=== PATIENT | female | born 2000 | race Caucasian/White ===

== ENCOUNTER 2021-09-26 19:05 | Emergency (ER) | payer BC, OTHER ==
--- OUTSIDE RECORDS SUMMARY | 2021-09-26 19:08 | XMS REPORT | Continuity of Care Document ---
:[address] [facility] t Address [address] [place] [address] Care Team Providers Name Role Phone Pcp, Patient Does Not Have A Primary Care Physician [id number] Roxi Bhatt Attending Clinician Unavailable Jody Caro Attending Clinician Unavailable JENNIFER BAIRD Attending Clinician Unavailable Nurse, [place] Albarran Attending Clinician Unavailable Michael CAAL, Nelsy Fonseca Attending Clinician Abigail Singh RN Attending Clinician Unavailable Only, Ang Db Test Attending Clinician Unavailable Cira Mayer MD Attending Clinician CIRA MAYER Attending Clinician Unavailable Lab, Adc Fam Pob I Attending Clinician Unavailable Shantelle Avendaño Attending Clinician 2, Adc Lab Attending Clinician Unavailable Jennifer Baird MD Attending Clinician Doctor Unassigned, [place] Attending Clinician Unavailable Physician, No Primary Care Admitting Clinician Unavailable Payers Payer Name Policy Type Policy Number Effective Date Expiration Date S [facility] [id number] 2020 PPO 00:00:00 Problems This patient has no known problems. Allergies, Adverse Reactions, Alerts Allergy Allergy Status Severity Reaction(s) Onset Inactive Treating Comm ents Source Name Type Date Date Clinician PENICILL DRUG Active Hives Univers IN INGREDI 1-25 ity of 00:00: [place] 00 Medical Branch Penicill Propensi Active Hives Univer s in ty to -25 ity of adverse 00:00: [place] reaction 00 Medical s Branch NO KNOWN Drug Active Univers ALLERGIE Class ity of S [facility] Social History Social Habit Start Date Stop Date Quantity Comments Source Exposure to Yes [facility] SARS-CoV-2 [facility] [place] [facility] (event) Branch Alcohol intake 2020-09-07 2020-09-07 Ex-drinker University of 00:00:00 00:00:00 (finding) [facility] Tobacco use and 2020-03-20 2020-03-20 Never used Universit y of exposure 00:00:00 00:00:00 [facility] Sex Assigned At [birth year] Universit y of 00:00:00 00:00:00 [facility] Smoking Status Start Date Stop Date Source Unknown if ever smoked [facility]it y [facility] Smoker, current status 2020-03-20 00:00:00 Unive rsity of [facility] [place] [facility] unknown Branch Medications Ordered Filled Start Stop Current Ordering Indication Dosage Frequency Signature Comments Components Source Medication Medication Date Date Medication? Clinician (SIG) Name Name medroxyPROG Yes [id number] 150mg Univers ESTERone 6-07 ity of (DEPO-PROVE 15:15: [place] RA) 00 Medical injection Branch 150 mg medroxyPROG 2020-0 Yes [id number] 150mg Univers ESTERone 6-07 ity of (DEPO-PROVE 15:15: [place] RA) 00 Medical injection Branch 150 mg medroxyPROG 2020-0 Yes [id number] 150mg Univers ESTERone 6-07 ity of (DEPO-PROVE 15:15: [place] RA) 00 Medical injection Branch 150 mg medroxyPROG 2020-0 Yes [id number] 150mg Univers ESTERone 6-07 ity of (DEPO-PROVE 15:15: [place] RA) 00 Medical injection Branch 150 mg medroxyPROG 2020-0 Yes [id number] 150mg Univers ESTERone 6-07 ity of (DEPO-PROVE 15:15: [place] RA) 00 Medical injection Branch 150 mg medroxyPROG 0 2020- No 150mg Univ ers ESTERone 1-29 12-31 ity of (DEPO-PROVE 19:45: 19:44 [place] RA) 00 :00 Medical injection Branch 150 mg medroxyPROG 2020- No 150mg Univ ers ESTERone 03-24 ity of (DEPO-PROVE 19:45: 19:44 [place] RA) 00 :00 Medical injection Branch 150 mg medroxyPROG 2020- No 150mg Univ ers ESTERone 03-24 ity of (DEPO-PROVE 19:45: 19:44 [place] RA) 00 :00 Medical injection Branch 150 mg medroxyPROG 2020- No 150mg Univ ers ESTERone 03-24 ity of (DEPO-PROVE 19:45: 19:44 [place] RA) 00 :00 Medical injection Branch 150 mg medroxyPROG 2020- No 150mg Univ ers ESTERone 03-24 ity of (DEPO-PROVE 19:45: 19:44 [place] RA) 00 :00 Medical injection Branch 150 mg medroxyPROG 2020- No 150mg 150 mg, U nivers ESTERone 03-24 Intramuscu ity of (DEPO-PROVE 19:45: 19:44 lar, [place] RA) 00 :00 [id number], Medical injection 4 doses, Branch 150 mg First dose on Fri03/24/20 at 1345, Last dose on Fri12/01/20 at 1345, Routine mv,Ca,min/i 0 Yes Take by Uni vers dinora/FA/guar 1-25 mouth. ity of rosalva/caff 21:18: (ONE-A-DAY 11 Medical WOMEN'S Branch ACTIVE ORAL) mv,Ca,min/i 2020-0 Yes Take by Uni vers dinora/FA/guar 1-25 mouth. ity of rosalva/caff 21:18: (ONE-A-DAY 11 Medical WOMEN'S Branch ACTIVE ORAL) mv,Ca,min/i 2020-0 Yes Take by Uni vers dinora/FA/guar 1-25 mouth. ity of rosalva/caff 15:18: (ONE-A-DAY 11 Medical WOMEN'S Branch ACTIVE ORAL) mv,Ca,min/i 2021-0 Yes Take by Uni vers dinora/FA/guar 1-25 mouth. ity of rosalva/caff 15:18: [place] (ONE-A-DAY 11 Medical WOMEN'S Branch ACTIVE ORAL) mv,Ca,min/i Yes Take by Uni vers dinora/FA/guar 1-25 mouth. ity of rosalva/caff 15:18: [place] (ONE-A-DAY 11 Medical WOMEN'S Branch ACTIVE ORAL) mv,Ca,min/i Yes Take by Uni vers dinora/FA/guar 1-25 mouth. ity of rosalva/caff 15:18: [place] (ONE-A-DAY 11 Medical WOMEN'S Branch ACTIVE ORAL) Procedures Procedure Date / Time Performing Clinician Source Performed PROLACTIN 2020-03-21 19:25:00 [facility] THYROID STIMULATING 2020-03-21 19:25:[address] [facility] HORMONE [facility] BASIC METABOLIC PANEL 2020-03-21 19:25:00 [facility] (NA, K, CL, CO2, Medical Branch GLUCOSE, BUN, CREATININE, CA) LIPID PANEL 2020-03-21 19:25:00 [facility] ([id number])(TOTAL Medical Branch CHOLESTEROL, TRIGLYCERIDES, HDL) ADC OR FLORES ONLY - 2020-03-21 19:25:00 [facility] RPR Medical Branch HIV 1/2 AG-AB WITH 2020-03-21 19:25:00 [facility] REFLEX [facility] ASSIGNMENT OF BENEFITS 2020-03-20 20:55:16 Doctor Unassigned, No [facility] Name Medical Branch Encounters Start End Encounter Admission Attending Care Care Encounter Source Date/Time Date/Time Type Type Clinicians Facility Department ID 2021-07[facility] [id number] Common 08:07:02 Roxi [facility] 2021-05-25 Outpatient Miller [facility] [id number] Common 09:09:04 Roxi [facility] 2019-04-25 [id number] [facility] 00:02:00 [facility] 2019-03-27 Inpatient [facility] [id number] [facility] 00:06:00 [facility] 2021-07-18 2021-07-18 ambulatory STLMLC STLMLC [id number] Common 00:00:00 00:00:00 [facility] 2021-06-19 2021-06-19 ambulatory STLMLC STLMLC [id number] Common 00:00:00 00:00:00 [facility] 2021-06-18 2021-06-18 ambulatory STLMLC STLMLC [id number] Common 00:00:00 00:00:00 [facility] 2021-05-25 2021-05-25 ambulatory STLMLC STLMLC [id number] Common 00:00:00 00:00:00 [facility] 2021-03-20 2021-03-20 Outpatient JUSTIN BOLDENN [facility] [id number] Univers 14:00:00 14:00:00 [id number] [facility] 2021-03-20 2021-03-20 Outpatient JUSTIN BOLDENN [facility] [id number] Univers 14:00:00 14:00:00 [facility] 2021-02-28 2021-02-28 Outpatient [facility] [id number] Univers 13:00:00 13:00:00 [id number] [facility] 2020-12-06 2020-12-06 Nurse Nurse, Carlosj Avis [facility] [id number] Univers 10:00:39 10:24:33 Visit Nelsy Rodriguez [id number] ity of Pediatric [id number] [facility] [phone] [address] 2020-12-06 2020-12-06 Outpatient R [facility] [id number] Univers 10:20:00 10:20:[facility]-12[facility] 2020-12-06 Outpatient R [facility] [id number] Univers 10:00:00 10:00:00 [id number] ity [facility] 2020-12-06 2020-12-06 Outpatient R [facility] [id number] Univers 10:00:00 10:00:00 ity [facility] 2020-11-12 2020-11-12 Telephone CHANCE Singh [id number] Univers 00:00:00 00:00:00 Abigail [place] [id number] it y of [facility] [id number] Parmjit as [phone] [address] 2020-11-11 2020-11-11 Laboratory Only, Ang Db Test [facility] [id number] Univers 09:03:10 09:18:10 Only [facility] [id number] ity of [place] [id number] Parmjit as Timur?Blea [phone] [address] Medical Office Building 2020-11-11 2020-11-11 Outpatient [facility] [id number] Univers 09:15:00 09:15:00 [id number] ity [facility] 2020-11-11 2020-11-11 Outpatient R MORENO [facility] [id number] Univers 09:15:00 09:15:00 CIRA ity [facility] 2020-09-07 2020-09-07 Outpatient R [facility] [id number] Univers 10:00:00 10:00:00 [id number] ity [facility] 2020-09-07 2020-09-07 Outpatient R [facility] [id number] Univers 10:00:00 10:00:00 ity of [facility] 2020-09-06 2020-09-06 Outpatient R [facility] [id number] Univers 10:00:00 10:00:00 [id number] ity [facility] 2020-09-06 2020-09-06 Outpatient R JENNIFER BAIRD [facility] [id number] Univers 10:00:00 10:00:00 ity [facility] 2020-08-04 2020-08-04 Laboratory Lab, Adc Fam Pob I [facility] [id number] Univers 14:55:01 15:00:42 Only Shantelle Ram [facility] [id number] ity [facility] [id number] Parmjit as Professio [phone] Ma dical nal 0[address] Branch Office [address] One 2020-08-04 2020-08-04 Outpatient R [facility] [id number] Univers 15:00:00 15:00:00 [id number] ity of [facility] 2020-08-04 2020-08-04 Outpatient R [facility] [id number] Univers 15:00:00 15:00:00 ity of [facility] 2020-06-14 2020-06-14 Outpatient R [facility] [id number] Univers 10:00:00 10:00:00 [id number] ity of [facility] 2020-06-14 2020-06-14 Outpatient R [facility] [id number] Univers 10:00:00 10:00:00 ity of [facility] 2020-03-24 2020-03-24 Outpatient [facility] [id number] Univers 11:15:00 11:15:00 [id number] ity of [facility] 2020-03-24 2020-03-24 Outpatient R [facility] [id number] Univers 11:15:00 11:15:00 ity [facility] 2020-03-21 2020-03-21 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 [id number] [place] [phone] Ma dical nal 353 [facility] 2020-03-21 2020-03-21 Outpatient R [facility] [id number] Univers 13:15:00 13:15:00 [id number] ity [facility] 2020-03-21 2020-03-21 Outpatient R [facility] [id number] Univers 13:15:00 13:15:00 ity of [facility] 2020-03-20 2020-03-20 Outpatient JENNIFER BOLDEN [facility] [id number] Univers 15:00:00 15:00:00 ity of [facility] 2020-03-20 2020-03-20 Orders Doctor CHANCE [id number] Univers 00:00:00 00:00:00 Only Unassigned, DELVIN [id number] ity of [place] [facility] [id number] Parmjit as [phone] [address] 2019-03-30 2019-03-30 [facility] [id number] [facility] 14:04:00 14:04:00 [facility] 2019-03-02 2019-03-02 [facility] [id number] [facility] 14:37:00 14:37:00 Jody [facility] Results Test Description Test Time Test Comments Results Result Comments Source ADC OR FLORES ONLY - RPR 2020-03-23 07:59:00 Test Item Value Reference Range Interpretation Comme nts RPR (Qualitative) (test code = 13089-4) Nonreactive Nonreactive Lab Interpretation (test code = 21124-9) [facility] 01:59:00 Test Item Value Reference Range Interpretation Comments PROLACTIN (test code = 7355413502) 8.8 ng/mL 3.3-26.7 Lab Interpretation (test code = Normal 26776-1) [facility] AG-AB WITH [id number] 22:10:00 Test Item Value Reference Range Interpretation Comments HIV Negative Negative Semi-quantitative (test code = 33148-0) TREE (test code = Non-reactive for HIV-1 TREE) antigen and HIV-1/HIV-2 antibodies. ?No laboratory evidence of HIV infection. ?Repeat in 2-4 weeks if acute HIV infection is suspected. [facility] STIMUL[facility] [id number] 22:01:00 Test Item Value Reference Range Interpretation Comments TSH (test code = See_Comment [Automated message] [id number]) The system [employer] generated this result transmitted ref erence range: 0.45 - 4 .70 mIU/L. The refe rence range was not u sed to interpret this result as normal/abnor mal. Lab Interpretation (test Normal code = 26287-4) [facility]IP[facility] PAN[facility] (72180)(TOTAL CHOLESTEROL, TRIGLYCERIDES, HDL)2020-03-21 21:32:00 Test Item Value Reference Range Interpretation Comments CHOL (test code = 180 mg/dL 120-200 [id number]) HDL (test code = 64 mg/dL >50 7043108005) HDLC RATIO (test code = See_Comment [Au tomated message] [id number]) The system [employer] generated this result transmit reyes reference range : <=4.5. The refe rence range was not u sed to interpret th is result as normal/abnormal . TRIG (test code = 50 mg/dL 30-170 8390516116) LDL CHOL (test code = 106 mg/dL See_Comment [Auto mated message] 20325-5) The system [employer] generated this result transmit reyes reference range : <=160. The refe rence range was not u sed to interpret th is result as normal/abnormal . VLDL (test code = 10 mg/dL 5-60 5130930665) Lab Interpretation (test Normal code = 41705-0) [facility] MET[facility]OLIC PANEL (NA, K, CL, CO2, GLUCOSE, BUN, CREATININE, CA)2020-03-21 21:31:00 Test Item Value Reference Range Interpretation Comments NA (test code = 139 mmol/L 135-145 8624926905) K (test code = 4.3 mmol/L 3.5-5 8001531378) CL (test code = 101 mmol/L 98-108 9423971661) CO2 TOTAL (test code = 29 mmol/L 23-31 4219202979) AGAP (test code = 2-16 0163552743) BUN (test code = 9 mg/dL 7-23 1065956206) GLUCOSE (test code = 90 mg/dL 70-110 2291187232) CREATININE (test code 0.68 mg/dL 0.5-1.04 = 4637905778) CALCIUM (test code = 9.7 mg/dL 8.6-10.6 3583419820) eGFR Calculation mL/min/1.73m2 (Non-) (test code = 7034152328) eGFR Calculation mL/min/1.73m2 () (test code = 5513749215) TREE (test code = TREE) Association of Glomerular Filtration Rate (GFR) and Staging of Kidney Disease* + -+ + ---+| GFR (mL/min/1.73 m2) ?| With Kidney Damage ?| ?Without Kidney Damage+ -------+ ------+ ---------+| ?>90 ?| ?Stage one ?| ? Normal ?+ --+ -+ ----+| ?60-89 ?| ?Stage two ?| ? Decreased GFR ? + -+ + ---+| ?30-59 ?| ?Stage three ?| ? Stage three ? + -+ + ---+| ?15-29 ?| ?Stage four ? | ? Stage four ?+ --+ -+ ----+| ?<15 (or dialysis) ? ?| ?Stage five ? | ? Stage five ?+ --+ -+ ----+ *Each stage assumes the associated GFR level has been in effect for at least three months. ?Stages 1 to 5, with or without kidney disease, indicate chronic kidney disease. Notes: Determination of stages one and two (with eGFR >59mL/min/1.73 m2) requires estimation of kidney damage for at least three months as defined by structural or functional abnormalities of the kidney, manifested by either:Pathological abnormalities or Markers of kidney damage (including abnormalities in the composition of the blood or urine or abnormalities in imaging tests). [facility]"
[2021-09-26 19:51] LABS: Absolute Lymphocytes (CBC) 1.9 K/uL (0.7-4.9); Hematocrit 38.9 % (36.0-45.0); Lymphocytes % 13.7 % (15.3-44.8); MCV 90.5 fL (80-100); MPV 7.4 fL (7.6-11.3)
[2021-09-26] MEDS ORDERED: NA CHLORIDE 0.9% 1,000 ML ONE (19:57)
[2021-09-26 20:01] LABS: Protime INR 1.12
[2021-09-26 20:12] LABS: ALT/SGPT 27 U/L (12-78); AST/SGOT 19 U/L (15-37); Albumin 4.6 g/dL (3.4-5.0); Alkaline Phosphatase 79 U/L (45-117); BUN Blood Urea Nitrogen 11 mg/dL (7-18); Bicarbonate 21 mmol/L (21-32); Bilirubin Total 0.3 mg/dL (0.2-1.0); Glomerular Filtration Rate 81 ml/min (=/>90); Glucose Level 303 mg/dL (74-106); Potassium 3.5 mmol/L (3.5-5.1); Sodium Level 137 mmol/L (136-145)
[2021-09-26 20:15] LABS: Bilirubin Direct < 0.1 mg/dL (0-0.2)
--- NOTE | 2021-09-26 20:54 | RAD REPORT ---
EXAM DESCRIPTION: CT - Head Brain Wo Cont - 09/26/2021 7:58 pm CLINICAL HISTORY: possible seizure, first one COMPARISON: No comparisons TECHNIQUE: Axial 5 mm thick images of the head were obtained without IV contrast. All CT scans are performed using dose optimization technique as appropriate and may include automated exposure control or mA/KV adjustment according to patient size. FINDINGS: No intracranial hemorrhage, mass, edema or shift of mid-line structures. No acute infarcti on changes seen. No abnormal extra-axial fluid collections. Ventricles are normal. Mastoid air cells and visualized portions of the paranasal sinuses are clear. No acute bony findings. IMPRESSION: Negative non-contrast CT head examination.
[2021-09-26 21:03] LABS: Barbiturates NEGATIVE (NEGATIVE); Benzodiazepines NEGATIVE (NEGATIVE); Cocaine NEGATIVE (NEGATIVE); METHAMPHETAM NEGATIVE (NEGATIVE); Methadone NEGATIVE (NEGATIVE); Opiates NEGATIVE (NEGATIVE); Phencyclidine NEGATIVE (NEGATIVE); THC Cannibis POSITIVE (NEGATIVE)
--- NOTE | 2021-09-26 21:34 | RAD REPORT ---
EXAM DESCRIPTION: CT - Abdomen Pelvis W Contrast - 09/26/2021 9:07 pm CLINICAL HISTORY: vomiting, elevated WBC COMPARISON: No comparisons TECHNIQUE: Biphasic, helical CT imaging of the abdomen and pelvis was performed following 100 ml non -ionic IV contrast. No oral contrast was given. All CT scans are performed using dose optimization technique as appropriate and may include automated exposure control or mA/KV adjustment according to patient size. FINDINGS: No suspicious findings in the lung bases. The liver, spleen, and pancreas show no suspicious findings. Gallbladder and biliary tree are also wi thout suspicious finding. Symmetric renal function is seen with no hydronephrosis or suspicious renal mass. No pyelonephritis o r acute parenchymal process. No bladder abnormalities. No adrenal abnormalities. Uterus and ovaries s how no suspicious findings. No dilated bowel loops or bowel wall thickening. No appendicitis findings. No free air, free fluid or inflammatory stranding. No hernia, mass or bulky lymphadenopathy. No suspicious bony findings. IMPRESSION: Contrast enhanced CT abdomen and pelvis showing no significant or suspicious finding.
[2021-09-26 21:56] LABS: CSF Glucose 118 mg/dL (40-70)
[2021-09-26 21:59] LABS: Urine Blood Negative (Negative); Urine Glucose 2+ (Negative); Urine Protein 2+ (Negative); Urine Specific Gravity >=1.030 (1.005-1.030); Urine pH 5.5 (5.0-7.0)
[2021-09-26 22:03] LABS: Appearance CLEAR (CLEAR); Body Fluid Source CSF; Body Fluid WBC 2 /mm^3; Color of fluid Colorless (COLORLESS); Fluid Total Volume 5.5 ml
[2021-09-26 22:06] LABS: Appearance CLEAR (CLEAR); Body Fluid Source CSF; Color of fluid Colorless (COLORLESS)
[2021-09-26 22:14] LABS: Body Fluid WBC 3 /mm^3
[2021-09-26 23:01] LABS: Potassium 3.8 mmol/L (3.5-5.1)
--- NOTE | 2021-09-26 23:51 | EDPHYS ---
Physician Documentation [facility] Name: Colleen Fong Age: 20 yrs Sex: Female : 2000 Arrival Date: 09/26/2021 Time: 19:10 Bed 5 Private MD: ED Physician Zenon Santamaria HPI: 09/26 20:01 This 20 yrs old Female presents to ER via EMS with complaints of possible seizure. rn 20:01 The patient presents after having a possible seizure episode. Character of seizure(s): rn Motor activity: generalized, Circulation: the patient did not experience evidence of pulse disturbance. Seizure onset: just prior to arrival. Associated injury: The patient did not suffer any apparent associated injury. Current symptoms: confusion. It is unknown whether or not the patient has had similar symptoms in the past. The patient has not recently seen a physician. EMS reports patient with possible seizure today, had been throwing up and boyfriend gave her either a phenergan or zofran, family reported seizure like activity, no hx of seizures. No trauma. NO fever. EMS did not witness seizure. Pt with decreased responsiveness upon EMS arrival but becoming more alert with time. . Historical: - Allergies: 19:30 No Known Allergies; vc1 - Home Meds: 19:30 None [Active]; vc1 - PSHx: 19:30 None; vc1 - Immunization history:: Adult Immunizations up to date, Unknown. - Social history:: Smoking status: unknown. - Family history:: not pertinent. - Hospitalizations: : No recent hospitalization is reported. ROS: 20:01 Unable to obtain ROS due to patient being uncooperative. rn Exam: 20:01 Constitutional: This is a well developed, well nourished patient who is awake, alert, rn and in no acute distress. Not cooperating, not answering questions. Covers head with blanket. Head/Face: Normocephalic, atraumatic. Eyes: Pupils equal round and reactive to light, extra-ocular motions intact. Lids and lashes normal. Conjunctiva and sclera are non-icteric and not injected. Cornea within normal limits. Periorbital areas with no swelling, redness, or edema. Cardiovascular: Regular rate and rhythm. No pulse deficits. Respiratory: No increased work of breathing, no retractions or nasal flaring. Abdomen/GI: Soft, non-tender Skin: Warm, dry MS/ Extremity: Pulses equal, no cyanosis. Neuro: Awake and alert, GCS 15, moves all 4 extremities, withdraws and localizes pain, does not cooperate with most of exam. 21:10 ECG was reviewed by the Attending Physician. rn Vital Signs: 19:19 BP 135 / 57; Pulse 60; Resp 18; Temp 98.1(A); Pulse Ox 99% on R/A; oe 22:22 BP 124 / 68; Pulse 63; Resp 18; Pulse Ox 100% ; vc1 23:30 BP 122 / 65; Pulse 64; Resp 17; Pulse Ox 100% ; vc1 Procedures: 21:28 Lumbar Puncture: Patient placed in left lateral decubitus position. Prepped with rn Betadine. Draped using sterile technique. used lidocaine, 2 cc. Collected 5 ml's of clear fluid. Sample sent to lab. Puncture site dressed with band aid, Patient tolerated well. Single stick, opening pressure only 11. MDM: 19:11 Patient medically screened. rn 23:04 ED course: Pt feeling much better, no acute findings to explain seizure, CSF studies rn and imaging of brain and abdomen negative. . 23:49 Differential diagnosis: seizure, adverse drug reaction, meningitis, new onset seizure, rn electrolyte disorder. Data reviewed: vital signs, nurses notes, lab test result(s), EKG, radiologic studies, CT scan, and as a result, I will discharge patient. Counseling: I had a detailed discussion with the patient and/or guardian regarding: the historical points, exam findings, and any diagnostic results supporting the discharge/admit diagnosis, lab results, radiology results, the need for outpatient follow up, to return to the emergency department if symptoms worsen or persist or if there are any questions or concerns that arise at home. Response to treatment: the patient's symptoms have resolved after treatment, the patient's condition has returned to base line, the patient is now symptom free, and as a result, I will discharge patient. Special discussion: I discussed with the patient/guardian in detail that at this point there is no indication for admission to the hospital. It is understood, however, that if the symptoms persist or worsen the patient needs to return immediately for re-evaluation. Based on the history and exam findings, there is no indication for further emergent testing or inpatient evaluation. I discussed with the patient/guardian the need to see the primary care provider for further evaluation of the symptoms. 09/26 19:11 Order name: Acetaminophen; Complete Time: 21:07 rn 09/26 19:11 Order name: Basic Metabolic Panel; Complete Time: 21:07 rn 09/26 19:11 Order name: CBC with Diff; Complete Time: 20:06 rn 09/26 19:11 Order name: ETOH Level; Complete Time: 21: rn 09/26 19:11 Order name: Hepatic Function; Complete Time: 21: rn 09/26 19:11 Order name: PT-INR; Complete Time: 20: rn 09/26 19:11 Order name: Ptt, Activated; Complete Time: 20: rn 09/26 19:11 Order name: Salicylate; Complete Time: 21: rn 09/26 19:11 Order name: Urine Drug Screen; Complete Time: 21: rn 09/26 20:01 Order name: SARS-COV-2 RT PCR (Document "Date of Onset" if Symptomatic); Complete Time: rn 23:48 09/26 21:28 Order name: Csf Culture rn 09/26 21:28 Order name: Fluid Cell Count,Body; Complete Time: 22:17 rn 09/26 19:11 Order name: EKG; Complete Time: 19:12 rn 09/26 19:11 Order name: EKG - Nurse/Tech; Complete Time: 20:53 rn 09/26 19:11 Order name: IV Saline Lock; Complete Time: 20:53 rn 09/26 19:11 Order name: Labs collected and sent; Complete Time: 20:53 rn 09/26 19:11 Order name: Urine Dipstick-Ancillary (obtain specimen); Complete Time: 20:53 rn 09/26 19:11 Order name: Urine Test (obtain specimen); Complete Time: 20:53 rn 09/26 19:11 Order name: CT Head Brain wo Cont; Complete Time: 21:07 rn 09/26 19:11 Order name: Glucose Level; Complete Time: 22:39 rn 09/26 20:06 Order name: CT Abd/Pelvis - IV Contrast Only; Complete Time: 21:36 rn 09/26 20:17 Order name: Lumbar Puncture Consent; Complete Time: 22:08 rn 09/26 20:17 Order name: Lumbar Puncture Setup; Complete Time: 22:08 rn 09/26 21:28 Order name: Spinal Fluid Profile; Complete Time: 22:17 rn 09/26 22:00 Order name: Urine Dipstick-Ancillary; Complete Time: 22:17 [facility] 09/26 22:18 Order name: BMP: once bolus complete; Complete Time: 23:13 rn EC:10 Rate is 62 beats/min. Rhythm is regular. QRS [place] is Normal. [place] interval is normal. QRS rn interval is normal. QT interval is normal. No Q waves. T waves are Normal. No ST changes noted. Clinical impression: Normal ECG. Interpreted by me. Reviewed by me. Administered Medications: 19:52 Drug: NS 0.9% 1000 ml Route: IV; Rate: 1000 ml; Site: left antecubital; 22:07 Follow up: Response: No adverse reaction; IV Status: Completed infusion; IV Intake: aa9 1000ml Disposition Summary: 09/26/21 23:50 Discharge Ordered Location: Home rn Problem: new rn Symptoms: are resolved rn Condition: Stable rn Diagnosis - Nausea with vomiting, unspecified rn - Dehydration rn - Other seizures rn Followup: rn - With: Private Physician - When: As needed - Reason: Recheck today's complaints, Re-evaluation by your physician Discharge Instructions: - Discharge Summary Sheet rn - Dehydration, Adult rn - Nausea and Vomiting, Adult rn - Seizure, Adult rn Forms: - Medication Reconciliation Form rn - Thank You Letter rn - Antibiotic dietary internship - Prescription Opioid Use rn Signatures: Dispatcher [employer] EDMariely Vogel RN RN Zenon Mccallum MD MD rn Calcote, Vanessa, RN RN 1 Torie Boggs RN aa9 Corrections: (The following items were deleted from the chart) 21:29 21:28 Lumbar Puncture: Patient placed in left lateral decubitus position. Prepped with rn Betadine. Draped using sterile technique. Collected 5 ml's of clear fluid. Sample sent to lab. Puncture site dressed with band aid, Patient tolerated well. Single stick, opening pressure only 11. rn
--- NOTE | 2021-09-26 23:51 | ER ---
Nurse's Notes [facility] Name: Colleen Fong Age: 20 yrs Sex: Female : 2000 Arrival Date: 09/26/2021 Time: 19:10 Bed 5 Private MD: Diagnosis: Nausea with vomiting, unspecified;Dehydration;Other seizures Presentation: 09/26 19:22 Chief complaint: EMS states: "She was feeling nauseous so her boyfriend gave her a few vc1 of his phenergan. He wasn't able to say how many or the dose. A little while later she had a seizure and it looks like she bit her lip. No seizure observed in route and she hasn't said anything. She has started becoming very restless.". Coronavirus screen: At this time, the client does not indicate any symptoms associated with coronavirus-19. Ebola Screen: No symptoms or risks identified at this time. Initial Sepsis Screen: Does the patient meet any 2 criteria? No. Patient's initial sepsis screen is negative. Does the patient have a suspected source of infection? No. Patient's initial sepsis screen is negative. Risk Assessment: Do you want to hurt yourself or someone else? Patient reports no desire to harm self or others. Onset of symptoms was September 26, 2021. 19:22 Method Of Arrival: EMS: [facility] 1 19:22 Acuity: KYLE 2 vc1 Triage Assessment: 19:47 General: Appears distressed, uncomfortable, Behavior is agitated, anxious, listless, aa9 uncooperative. Historical: - Allergies: 19:30 No Known Allergies; vc1 - Home Meds: 19:30 None [Active]; vc1 - PSHx: 19:30 None; vc1 - Immunization history:: Adult Immunizations up to date, Unknown. - Social history:: Smoking status: unknown. - Family history:: not pertinent. - Hospitalizations: : No recent hospitalization is reported. Screenin:56 Abuse screen: Denies threats or abuse. Nutritional screening: No deficits noted. kl Tuberculosis screening: No symptoms or risk factors identified. Fall Risk IV access (20 points). Mental Status- Overestimates/Forgets Limitations (15 pts.). Assessment: 19:53 General: Appears distressed, slender, Behavior is drowsy, restless. Pain: Unable to use kl pain scale. pt reports pain but unable to clarify where. Neuro: Level of Consciousness is confused, Oriented to person, pt unable to participate at this time. Cardiovascular: Heart tones S1 S2 Rhythm is sinus rhythm. Respiratory: No deficits noted. Airway is patent Trachea midline Respiratory effort is even, unlabored, Respiratory pattern is regular, Breath sounds are clear bilaterally. GI: Parent/caregiver reports the patient having intolerance of food, intolerance of fluids, nausea. : No deficits noted. No signs and/or symptoms were reported regarding the genitourinary system. EENT: No deficits noted. No signs and/or symptoms were reported regarding the EENT system. Derm: No deficits noted. No signs and/or symptoms reported regarding the dermatologic system. Parent/caregiver reports the patient having pt has been vomiting all day and was given Zofran 8mg then became unresponsive. 20:14 Reassessment: Patient appears in no apparent distress at this time. Patient states kl feeling better. Patient states symptoms have improved. pt awake alert cooperative provider at bedside speaking with family and patient. 22:21 Reassessment: Patient and/or family updated on plan of care and expected duration. Pain vc1 level reassessed. Patient is alert, oriented x 3, equal unlabored respirations, skin warm/dry/pink. Patient states symptoms have improved. 09/27 00:19 Reassessment: Patient and/or family updated on plan of care and expected duration. Pain vc1 level reassessed. Patient is alert, oriented x 3, equal unlabored respirations, skin warm/dry/pink. Patient states feeling better. Patient states symptoms have improved. Vital Signs: 09/26 19:19 BP 135 / 57; Pulse 60; Resp 18; Temp 98.1(A); Pulse Ox 99% on R/A; oe 22:22 BP 124 / 68; Pulse 63; Resp 18; Pulse Ox 100% ; vc1 23:30 BP 122 / 65; Pulse 64; Resp 17; Pulse Ox 100% ; vc1 ED Course: 19:10 Patient arrived in ED. rn 19:10 Zenon Santamaria MD is Attending Physician. rn 19:25 Triage completed. vc1 19:38 Acetaminophen Sent. kl 19:38 Basic Metabolic Panel Sent. kl 19:38 CBC with Diff Sent. kl 19:38 ETOH Level Sent. kl 19:38 Hepatic Function Sent. kl 19:38 PT-INR Sent. kl 19:38 Ptt, Activated Sent. kl 19:47 Arm band placed on. aa9 19:47 Patient has correct armband on for positive identification. Bed in low position. Side aa9 rails up X2. 20:00 CT Head Brain wo Cont In Process Unspecified. EDMS 21:08 CT Abd/Pelvis - IV Contrast Only In Process Unspecified. EDMS 21:49 No apparent distress. Resting quietly. kl 22:09 SARS-COV-2 RT PCR (Document "Date of Onset" if Symptomatic) Sent. aa9 22:24 BMP: once bolus complete Sent. la1 23:06 BMP: once bolus complete Sent. tw5 08 00:17 No provider procedures requiring assistance completed. IV discontinued, intact, vc1 bleeding controlled, No redness/swelling at site. Pressure dressing applied. Administered Medications: 09/26 19:52 Drug: NS 0.9% 1000 ml Route: IV; Rate: 1000 ml; Site: left antecubital; kl 22:07 Follow up: Response: No adverse reaction; IV Status: Completed infusion; IV Intake: aa9 1000ml Medication: 09/27 00:19 VIS not applicable for this client. vc1 Intake: 09/26 22:07 IV: 1000ml; Total: 1000ml. aa9 Outcome: 23:50 Discharge ordered by . rn 09/27 00:17 Discharged to home ambulatory, with significant other. vc1 Condition: good Discharge instructions given to patient, Instructed on discharge instructions, follow up and referral plans. Demonstrated understanding of instructions, follow-up care. 00:20 Patient left the ED. vc1 Signatures: Dispatcher [employer] EDMariely Vogel RN RN kl Nieto, Roman, MD MD rn Attema, Lee, MODELING DIRECTOR-C MODELING DIRECTOR-Cla1 Bora Tomlinson Tiffany tw5 Amber Chacon RN RN vc1 Torie Boggs RN RN aa9
[2021-09-27 02:11] VITALS: TEMP 98.1
[2021-09-27 02:16] VITALS: O2SAT 100
[2021-09-27 02:18] VITALS: BP 122/65
--- NOTE | 2021-09-27 10:32 | EKG ---
Test Date: 2021-09-26 Test Time: 20:34:57 Glue Reel Operator: MANOJ MEASUREMENT RESULTS: Intervals: Rate: 65 PA: 114 QRSD: 86 QT: 398 QTc: 413 [place]: P: 35 PA: 114 QRS: 70 T: 54 INTERPRETIVE STATEMENTS: Undetermined rhythm Otherwise normal ECG No previous ECG available for comparison Electronically Signed On 09-27-21 10:31:21 CDT by Charles Amanda
--- NOTE | 2021-09-28 15:11 | EKG ---
Test Date: 2021-09-26 Test Time: 20:35:44 Administrative Office Clerk: MANOJ MEASUREMENT RESULTS: Intervals: Rate: 62 IN: 112 QRSD: 84 QT: 410 QTc: 416 [place]: P: 53 IN: 112 QRS: 70 T: 56 INTERPRETIVE STATEMENTS: Normal sinus rhythm with sinus arrhythmia Normal ECG Compared to ECG 09/26/2021 20:34:57 No significant changes Electronically Signed On 09-28-21 15:08:35 CDT by Keny Alfaro
== END 2021-09-27 00:20 | disposition home or self-care (01) ==
LOC: ER 19:05
PROC: 009U3ZX Drainage of Spinal Canal, Percutaneous Approach, Diagnostic (ICD-10-PCS; principal; 2021-09-27)
DX: E86.0 Dehydration (principal); G40.89 Other seizures; Z20.822 Contact with and (suspected) exposure to COVID-19
CPT/HCPCS: 96361; 93005 ×2; 87070; 85025; 80048 ×2; 36415; 80320; 89050 ×2; 80329 ×2; 84157; 85610; 82945; 80076; 85730; 81003; 80307; 70450; 74177; 62270; 96360; 99284; U0003; Q9967; J7030

== ENCOUNTER 2021-09-27 03:07 | Observation (INO) | payer BC ==
--- OUTSIDE RECORDS SUMMARY | 2021-09-27 03:11 | XMS REPORT | Continuity of Care Document ---
:2000 Author Organization [facility] t Address [address] [place] [address] Care Team Providers Name Role Phone Pcp, [...] Jennifer Baird MD Attending Clinician Doctor Unassigned, [place] Attending Clinician Unavailable Physician, No Primary Care Admitting Clinician Unavailable Payers Payer Name Policy Type Policy Number Effective Date Expiration Date S [facility] [id number] 2020 PPO 00:00:00 Problems This patient has [...] Active Univers ALLERGIE Class ity of S [facility] Social History Social Habit Start Date Stop Date Quantity Comments Source Exposure to Yes [facility] SARS-CoV-2 [facility] (event) Branch Alcohol intake 2020-09-07 2020-09-07 Ex-drinker University of 00:00:00 00:00:00 (finding) [facility] Tobacco use and 2020-03-20 2020-03-20 Never used Universit y of exposure 00:00:00 00:00:00 [facility] Sex Assigned At [birth year] Universit y of 00:00:00 00:00:00 [facility] Smoking Status Start Date Stop Date Source Unknown if ever smoked Universit y [facility] Smoker, current status 2020-03-20 00:00:00 Unive rsity of [facility] unknown Branch Medications Ordered Filled Start Stop Current Ordering Indication Dosage Frequency Signature Comments Components Source Medication Medication Date Date Medication? Clinician (SIG) Name Name medroxyPROG Yes [id number] 150mg Univers ESTERone 6-07 ity of (DEPO-PROVE 15:15: [place] RA) 00 Medical injection Branch 150 mg medroxyPROG 2020-0 Yes [id number] 150mg Univers ESTERone 6-07 ity of (DEPO-PROVE 15:15: [place] RA) 00 Medical injection Branch 150 mg medroxyPROG 2020-0 Yes [id number] 150mg Univers ESTERone 6-07 ity of (DEPO-PROVE 15:15: [place] RA) 00 Medical injection Branch 150 mg medroxyPROG 2020-0 Yes [id number] 150mg Univers ESTERone 6-07 ity of (DEPO-PROVE 15:15: [place] RA) 00 Medical injection Branch 150 mg medroxyPROG 2020-0 Yes [id number] 150mg Univers ESTERone 6-07 ity of (DEPO-PROVE [...] 19:45: 19:44 lar, [place] RA) 00 :00 [id number], Medical injection 4 doses, Branch 150 mg [...] Performing Clinician Source Performed PROLACTIN 2020-03-21 19:25:00 [facility], [facility] THYROID STIMULATING 2020-03-21 19:25:00 [facility] HORMONE [facility] Branch BASIC METABOLIC PANEL 2020-03-21 19:25:00 [facility] (NA, K, CL, CO2, Medical Branch GLUCOSE, BUN, CREATININE, CA) LIPID PANEL 2020-03-21 19:25:00 [facility], [facility] ([id number])(TOTAL Medical Branch CHOLESTEROL, TRIGLYCERIDES, HDL) ADC OR FLORES ONLY - 2020-03-21 19:25:00 [facility], [facility] RPR Medical Branch HIV 1/2 AG-AB WITH 2020-03-21 19:25:00 [facility] REF[facility] Branch ASSIGNMENT OF BENEFITS 2020-03-20 20:55:16 Doctor Unassigned, No [facility] Name Medical Branch Encounters Start End Encounter Admission Attending Care Care Encounter Source Date/Time Date/Time Type Type Clinicians Facility Department ID 2021-07-[address] [id number] Common 08:07:02 Roxi [facility] 2021-05-[address] [facility] [id number] Common 09:09:04 Roxi [facility] 2019-04-25 [id number] [facility] 00:02:00 Jody [facility] 2019-03-27 Inpatient [facility] [id number] [facility] 00:06:00 [facility] 2021-07-18 2021-07-18 ambulatory STLMLC STLMLC [id number] Common 00:00:00 00:00:00 [facility] 2021-06-19 2021-06-19 ambulatory STLMLC STLMLC [id number] Common 00:00:00 00:00:00 [facility] 2021-06-18 2021-06-18 ambulatory STLMLC STLMLC [id number] Common 00:00:00 00:00:00 [facility] 2021-05-25 2021-05-25 ambulatory STLMLC STLMLC [id number] Common 00:00:00 00:00:00 [facility] 2021-03-20 2021-03-20 Outpatient JUSTIN BOLDENN [facility] [id number] Univers 14:00:00 14:00:00 [id number] [facility] 2021-03-20 2021-03-20 Outpatient JUSTIN BOLDENN [facility] [id number] Univers 14:00:00 14:00:00 [facility] 2021-02-28 2021-02-28 Outpatient [facility] [id number] Univers 13:00:00 13:00:00 [id number] [facility] 2020-12-06 2020-12-06 Nurse Nurse, Carlosj Avis [facility] [id number] Univers 10:00:39 10:24:33 Visit Nelsy Rodriguez [id number] ity of Pediatric [id number] [facility] [phone] [address] 2020-12-06 2020-12-06 Outpatient R [facility] [id number] Univers 10:20:00 [facility] 2020-12[facility]06 2020-12-06 Outpatient R [facility] [id number] Univers 10:00:00 10:00:00 [id number] ity [facility] 2020-12-06 2020-12-06 Outpatient R [facility] [id number] Univers 10:00:00 10:00:00 ity [facility] 2020-11-12 2020-11-12 Telephone CHANCE Singh [id number] Univers 00:00:00 00:00:00 Abigail HARGROVE [id number] it y of [facility] [id number] Parmjit as [phone] [address] 2020-11-11 2020-11-11 Laboratory Only, Ang Db Test RUST 1.2.8 [id number] [id number] Univers 09:03:10 09:18:10 Only [facility] [id number] ity of [place] [id number] Parmjit as Timur?Blea [phone] [address] Medical Office Building 2020-11-11 2020-11-11 Outpatient [facility] [id number] Univers 09:15:00 09:15:00 [id number] ity [facility] 2020-11-11 2020-11-11 Outpatient R MORENO [facility] [id number] Univers 09:15:00 09:15:00 CIRA ity [facility] 2020-09-07 2020-09-07 Outpatient R [facility] [id number] Univers 10:00:00 10:00:00 [id number] ity [facility] 2020-09-07 2020-09-07 Outpatient R [facility] [id number] Univers 10:00:00 10:00:00 ity of [facility] 2020-09-06 2020-09-06 Outpatient R [facility] [id number] Univers 10:00:00 10:00:00 [id number] ity [facility] 2020-09-06 2020-09-06 Outpatient R JENNIFER BAIRD [facility] [id number] Univers 10:00:00 10:00:00 ity [facility] 2020-08-04 2020-08-04 Laboratory Lab, Adc Fam Pob I RUST 1.2. [id number] Univers 14:55:01 15:00:42 Only Shantelle Ram [facility] [id number] [facility] [id number] Parmjit as Professio [phone] Nh dical nal 0[address] Branch Office [address] One 2020-08-04 2020-08-04 Outpatient R [facility] [id number] Univers 15:00:00 15:00:00 [id number] ity of [facility] 2020-08-04 2020-08-04 Outpatient R [facility] [id number] Univers 15:00:00 15:00:00 ity of [facility] 2020-06-14 2020-06-14 Outpatient R [facility] [id number] Univers 10:00:00 10:00:00 [id number] ity of [facility] 2020-06-14 2020-06-14 Outpatient R [facility] [id number] Univers 10:00:00 10:00:00 ity of [facility] 2020-03-24 2020-03-24 Outpatient [facility] [id number] Univers 11:15:00 11:15:00 [id number] ity of [facility] 2020-03-24 2020-03-24 Outpatient R [facility] [id number] Univers 11:15:00 11:15:00 ity [facility] 2020-03-21 2020-03-21 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 2, [facility] RUST [id number] Univers 13:18:52 13:33:52 Visit Jennifer Baird [id number] ity [facility] [id number] [place] Profess[place] [phone] Nh dical nal [facility] 2020-03-21 2020-03-21 Outpatient R [facility] [id number] Univers 13:15:00 13:15:00 [id number] ity [facility] 2020-03-21 2020-03-21 Outpatient R [facility] [id number] Univers 13:15:00 13:15:00 ity of [facility] 2020-03-20 2020-03-20 Outpatient JENNIFER BOLDEN [facility] [id number] Univers 15:00:00 15:00:00 ity of [facility] 2020-03-20 2020-03-20 Orders Doctor CHANCE [id number] Univers 00:00:00 00:00:00 Only Unassigned, DELVIN [id number] ity of [place] [facility] [id number] Parmjit as [phone] [address] 2019-03-30 2019-03-30 [facility] [id number] [facility] 14:04:00 14:04:00 Jody [facility] s [facility] 2019-03-02 2019-03-02 Outpatient [facility] [id number] [facility] 14:37:00 14:37:00 Jody [facility] Results Test Description Test Time Test Comments Results Result Comments Source ADC OR FLORES ONLY - RPR 2020-03-23 07:59:00 Test Item Value Reference Range Interpretation Comme nts RPR (Qualitative) (test code = 08767-2) Nonreactive Nonreactive Lab Interpretation (test code = 24571-1) [facility] 01:59[facility]00 Test Item Value Reference Range Interpretation Comments PROLACTIN (test code = 3512753676) 8.8 ng/mL 3.3-26.7 Lab Interpretation (test code = Normal 82360-7) [facility]-AB WITH [id number] 22:10:00 Test Item Value Reference Range Interpretation Comments HIV Negative Negative Semi-quantitative (test code = 96171-7) TREE (test code = Non-reactive for HIV-1 TREE) antigen and HIV-1/HIV-2 antibodies. ?No laboratory evidence of HIV infection. ?Repeat in 2-4 weeks if acute HIV infection is suspected. [facility] [id number] 22:01:00 Test Item Value Reference Range Interpretation Comments TSH (test code = See_Comment [Automated message] [id number]) The system [employer] generated this result transmitted ref erence range: 0.45 - 4 .70 mIU/L. The refe rence range was not u sed to interpret this result as normal/abnor mal. Lab Interpretation (test Normal code = 87337-5) [facility] ([id number])(TOTAL CHOLESTEROL, TRIGLYCERIDES, HDL)2020-03-21 21:32:00 Test Item Value Reference Range Interpretation Comments CHOL (test code = 180 mg/dL 120-200 7275150577) HDL (test code = 64 mg/dL >50 3883636701) HDLC RATIO (test code = See_Comment [Au tomated message] [id number]) The system [employer] generated this result transmit reyes reference range : <=4.5. The refe rence range was not u sed to interpret th is result as normal/abnormal . TRIG (test code = 50 mg/dL 30-170 0514412980) LDL CHOL (test code = 106 mg/dL See_Comment [Auto mated message] 41848-7) The system [employer] generated this result transmit reyes reference range : <=160. The refe rence range was not u sed to interpret th is result as normal/abnormal . VLDL (test code = 10 mg/dL 5-60 7627075965) Lab Interpretation (test Normal code = 99002-2) [facility] (NA, K, CL, CO2, GLUCOSE, BUN, CREATININE, CA)2020-03-21 21:31:00 Test Item Value Reference Range Interpretation Comments NA (test code = 139 mmol/L 135-145 2269193799) K (test code = 4.3 mmol/L 3.5-5 4920866263) CL (test code = 101 mmol/L 98-108 2606371288) CO2 TOTAL (test code = 29 mmol/L 23-31 3666492054) AGAP (test code = 2-16 5966102093) BUN (test code = 9 mg/dL 7-23 6340239719) GLUCOSE (test code = 90 mg/dL 70-110 3394841667) CREATININE (test code 0.68 mg/dL 0.5-1.04 = 9555763870) CALCIUM (test code = 9.7 mg/dL 8.6-10.6 0892732745) eGFR Calculation mL/min/1.73m2 (Non-) (test code = 7775196028) eGFR Calculation mL/min/1.73m2 () (test code = 8945806801) TREE (test code = TREE) Association of [...] or urine or abnormalities in imaging tests). [facility]"
--- NOTE | 2021-09-27 03:28 | EDPHYS ---
Physician Documentation [facility] Name: Colleen Fong Age: 20 yrs Sex: Female : 2000 Arrival Date: 09/27/2021 Time: 03:08 Bed 14 Private MD: ED Physician Zenon Santamaria HPI: 09/27 03:21 This 20 yrs old Female presents to ER via Unassigned with complaints of Probable rn Seizure. 03:21 The patient presents after having a single isolated seizure, that lasted 30 second(s). rn Seizure onset: just prior to arrival. Seizure Hx: Original onset:. Associated injury: The patient did not suffer any apparent associated injury. Current symptoms: Currently, the patient is not experiencing any symptoms. The patient has experienced a previous episode, yesterday. The patient has been recently seen at the [facility] Emergency Department, today, by me. Pt returns with another seizure, 30 seconds. Workup earlier including ct head and LP neg. . Historical: - Allergies: 03:27 PENICILLINS; sm5 - Immunization history:: Adult Immunizations up to date. - Social history:: Smoking status: unknown. - Family history:: not pertinent. - Hospitalizations: : No recent hospitalization is reported. ROS: 03:21 Constitutional: Negative for fever, chills, and weight loss, Eyes: Negative for injury, rn pain, redness, and discharge, Neck: Negative for injury, pain, and swelling, Cardiovascular: Negative for chest pain, palpitations, and edema, Respiratory: Negative for shortness of breath, cough, wheezing, and pleuritic chest pain, Abdomen/GI: Negative for abdominal pain, nausea, vomiting, diarrhea, and constipation, Back: Negative for injury and pain, MS/Extremity: Negative for injury and deformity, Skin: Negative for injury, rash, and discoloration, Neuro: Negative for headache, weakness, numbness, tingling Exam: 03:21 Constitutional: This is a well developed, well nourished patient who is awake, alert, rn and in no acute distress. Head/Face: Normocephalic, atraumatic. Eyes: Periorbital areas with no swelling, redness, or edema. Cardiovascular: Regular rate and rhythm. No pulse deficits. Respiratory: No increased work of breathing, no retractions or nasal flaring. Abdomen/GI: Soft, non-tender Skin: Warm, dry MS/ Extremity: Pulses equal, no cyanosis. Neuro: Awake and alert, GCS 15, oriented to person, place, time, and situation. Cranial nerves II-XII grossly intact. Motor strength 5/5 in all extremities. Sensory grossly intact. Cerebellar exam normal. Vital Signs: 03:25 BP 130 / 100; Pulse 67; Resp 18; Temp 98.2(TE); Pulse Ox 100% on R/A; Pain 8/10; sm5 03:27 Weight 54.43 kg; Height 5 ft. 5 in. (165.10 cm); sm5 03:27 Body Mass Index 19.97 (54.43 kg, 165.10 cm) sm5 Shannan Coma Score: 03:27 Eye Response: spontaneous(4). Verbal Response: oriented(5). Motor Response: obeys sm5 commands(6). Total: 15. MDM: 03:09 Patient medically screened. rn 03:21 Differential diagnosis: cardiac arrhythmia, seizure. Data reviewed: vital signs, nurses rn notes, old medical records, lab test result(s), and as a result, I will admit patient. Counseling: I had a detailed discussion with the patient and/or guardian regarding: the historical points, exam findings, and any diagnostic results supporting the discharge/admit diagnosis, lab results, radiology results, the need for further work-up and treatment in the hospital. Response to treatment: the patient's condition has returned to base line, the patient is now symptom free, and as a result, I will admit patient. Admission orders: after a detailed discussion of the patient's condition and case, the admit orders are written by me. ED course: Pt returns with 2nd seizure in 24 hours. Will now admit for further w/u, started on keppra.. 09/27 03:20 Order name: BMP; Complete Time: 04:20 rn 09/27 06:16 Order name: CBC with Automated Diff EDMS 09/27 09:14 Order name: RAD EDMS 09/27 09:43 Order name: Phosphorus EDMS 09/27 09:43 Order name: Magnesium EDMS 09/27 12:29 Order name: Glucose, Ancillary Testing EDMS 09/27 03:20 Order name: IV Start; Complete Time: 03:59 rn 09/27 03:21 Order name: Cardiac monitoring; Complete Time: 03:29 rn 09/27 03:21 Order name: O2 Sat Monitoring; Complete Time: 03:29 rn 09/27 12:04 Order name: MRI EDMS Administered Medications: 04:04 Drug: Keppra (levETIRAcetam) 1000 mg Route: IV; Rate: calculated rate; Site: right sm5 forearm; 04:17 Follow up: IV Status: Completed infusion; IV Intake: 100ml sm5 04:17 Drug: Lactated Ringers Solution 1000 ml Route: IV; Rate: 100 ml/hr; Site: right forearm;sm5 Disposition Summary: 09/27/21 03:27 Hospitalization Ordered Hospitalization Status: Inpatient Admission rn Provider: Iam Santamaria rn Condition: Stable rn Problem: new rn Symptoms: have improved rn Bed/Room Type: Standard rn Location: [facility] ER HOLD(09/27/21 04:34) cg Room Assignment: ERHOLD-(09/27/21 04:34) cg Diagnosis - Epileptic seizures related to external causes, not intractable, 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
--- NOTE | 2021-09-27 03:28 | ER ---
Nurse's Notes [facility] Name: Colleen Fong Age: 20 yrs Sex: Female : 2000 Arrival Date: 09/27/2021 Time: 03:08 Bed 14 Private MD: Diagnosis: Epileptic seizures related to external causes, not intractable, without status epilepticus Presentation: 09/27 03:25 Chief complaint: Spouse and/or significant other states: pt was in bed and leaned over sm5 the side of the bed and "had a seizure" boyfriend states she was clenching her fists, diaphoretic, drooling from the mouth. boyfriend states seizure lasted about 1 min and a half. Coronavirus screen: At this time, the client does not indicate any symptoms associated with coronavirus-19. Ebola Screen: No symptoms or risks identified at this time. 03:25 Method Of Arrival: Ambulatory 5 03:28 Initial Sepsis Screen: Does the patient meet any 2 criteria? No. Patient's initial 5 sepsis screen is negative. Does the patient have a suspected source of infection? No. Patient's initial sepsis screen is negative. Risk Assessment: Do you want to hurt yourself or someone else? Patient reports no desire to harm self or others. Onset of symptoms was September 27, 2021. 03:28 Acuity: KYLE 3 sm5 Triage Assessment: 03:27 General: Appears in no apparent distress. Behavior is cooperative. Pain: Complains of sm5 pain in head Pain currently is 8 out of 10 on a pain scale. Neuro: Level of Consciousness is awake, alert, obeys commands, Oriented to person, place, time, situation. Cardiovascular: Capillary refill < 3 seconds Patient's skin is warm and dry. Respiratory: Airway is patent Trachea midline Respiratory effort is even, unlabored. Historical: - Allergies: 03:27 PENICILLINS; sm5 - Immunization history:: Adult Immunizations up to date. - Social history:: Smoking status: unknown. - Family history:: not pertinent. - Hospitalizations: : No recent hospitalization is reported. Screenin:28 Abuse screen: Denies threats or abuse. Denies injuries from another. Nutritional sm5 screening: No deficits noted. Tuberculosis screening: No symptoms or risk factors identified. Fall Risk None identified. Assessment: 03:40 Reassessment: see triage assessment. 5 Vital Signs: 03:25 BP 130 / 100; Pulse 67; Resp 18; Temp 98.2(TE); Pulse Ox 100% on R/A; Pain 8/10; sm5 03:27 Weight 54.43 kg; Height 5 ft. 5 in. (165.10 cm); sm5 03:27 Body Mass Index 19.97 (54.43 kg, 165.10 cm) 5 Shannan Coma Score: 03:27 Eye Response: spontaneous(4). Verbal Response: oriented(5). Motor Response: obeys 5 commands(6). Total: 15. ED Course: 03:08 Patient arrived in ED. ja2 03:09 Zenon Santamaria MD is Attending Physician. rn 03:25 Blossom Spears RN is Primary Nurse. 5 03:27 Iam Santamaria MD is Hospitalizing Provider. rn 03:28 Triage completed. 5 03:28 Arm band placed on right wrist. 5 03:28 Patient has correct armband on for positive identification. Bed in low position. Call 5 light in reach. Side rails up X2. Seizure precautions initiated. Client placed on continuous cardiac and pulse oximetry monitoring. NIBP monitoring applied. 03:56 Inserted saline lock: 20 gauge in right forearm, using aseptic technique. Blood 4 collected. 03:59 BMP Sent. 5 Administered Medications: 04:04 Drug: Keppra (levETIRAcetam) 1000 mg Route: IV; Rate: calculated rate; Site: right 5 forearm; 04:17 Follow up: IV Status: Completed infusion; IV Intake: 100ml [facility] 04:17 Drug: Lactated Ringers Solution 1000 ml Route: IV; Rate: 100 ml/hr; Site: right forearm;5 Medication: 04:00 VIS not applicable for this client. 5 Intake: 04:17 IV: 100ml; Total: 100ml. 5 Outcome: 03:27 Decision to Hospitalize by Provider. rn 16:15 Patient left the ED. [facility] Signatures: Zenon Santamaria MD MD rn Alexander, Jessica ja2 Hastedt, Jennifer, RN RN 6 Blossom Spears RN RN sm5 Pelon Funes RN RN [facility]
[2021-09-27] MEDS ORDERED: NA CHLORIDE 0.9% 100 ML ONE (04:04)
[2021-09-27] MEDS ORDERED: LEVETIRACETAM 500 MG/5 ML VIAL IV ONE (04:04)
[2021-09-27 04:16] LABS: Potassium 3.7 mmol/L (3.5-5.1)
[2021-09-27] MEDS ORDERED: Ringers Lactate 1,000 ML IV ONE (04:20)
--- NOTE | 2021-09-27 04:30 | P.HP ---
Certification for Inpatient Patient admitted to: Observation With expected LOS: <2 Midnights Patient will require the following post-hospital care: None Practitioner: I am a practitioner with admitting privileges, knowledge of patient current condition, hospital course, and medical plan of care. Services: Services provided to patient in accordance with Admission requirements found in Title 42 Section 412.3 of the Code of Federal Regulations Patient History Date of Service: 09/27/21 Reason for admission: Seizures History of Present Illness: 20-year-old female history of GERD presents emergency department for seizure. She was here earlier today for first-time seizure significant other bedside reports that she had nausea and vomiting of the day today he gave her a milligrams of Zofran p.o. she took a nap after waking from a nap she took a shower followed by having a 1 minute long tonic-clonic seizure witnessed by family EMS was called and patient was transported to the hospital she was evaluated here in the emergency department her initial labs were significant for a glucose of 303 white blood cell count of 13.8 UDS positive for THC negative salicylate, a lumbar puncture was performed which revealed elevated CSF glucose but otherwise was negative urinalysis with 2+ glucose 1+ ketones patient given IV fluids repeat chemistry was performed her blood sugar improved to 95 she is feeling better and had no more seizure-like activity so she was discharged home to follow-up with neurology outpatient, after returning home patient lay down in bed had another approximately 1 minute long tonic-clonic seizure witnessed again by family and was brought back to the emergency department. Patient appears to be mildly postictal at this time repeated the chemistry which was unremarkable ED provider wishes to admit for further evaluation and management of new onset seizures. 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 moist/pink, EOMI, Sclerae nonicteric Neck: Supple, 2+ carotid pulse no bruit, No LAD, Without JVD or thyroid abnormality Respiratory: Clear to auscultation bilaterally, Normal air movement Cardiovascular: Regular rate/rhythm, Normal S1 S2 Capillary refill: <2 Seconds Gastrointestinal: Normal bowel sounds, No tenderness Musculoskeletal: No tenderness Integumentary: No rashes Neurological: Normal gait, Normal speech, Normal strength at 5/5 x4 extr, Normal tone, Normal affect Lymphatics: No axilla or inguinal lymphadenopathy - Studies Laboratory Data (last 24 hrs) 09/27/21 03:51: Sodium 135 L, Potassium 3.7, BUN 8, Creatinine 0.85, Glucose 164 H Assessment and Plan - Plan Assessment: New onset seizures Hyperglycemia Plan: New onset seizures: CT head brain negative for acute findings today, labs overall unremarkable aside from hyperglycemia, patient denies recreational drug use did test positive for THC. Denies any family or personal history of seizure disorder. Seizure precautions placed neurology consult in place, given 1 g of Keppra IV in the emergency department we will continue Keppra 500 p.o. twice daily for time being EEG ordered. Appreciate further input from neurology. Hyperglycemia: Not a known diabetic after her procedure when she came to the emergency department her sugar was around 300 it was corrected with just IV fluids mild hyperglycemia currently. Will obtain A1c, ACS Accu-Chek, sliding scale insulin. Suspect underlying diabetes. DVT PPX: Lovenox Code status: Full Discharge Plan: Home Plan to discharge in: 24 Hours - Advance Directives Does patient have a Living Will: No Does patient have a Durable POA for Healthcare: No - Code Status/Comfort Care Code Status Assessed: Yes (Full code) Critical Care: No Time Spent Managing Pts Care (In Minutes): 70
[2021-09-27 06:12] LABS: Absolute Lymphocytes (CBC) 1.5 K/uL (0.7-4.9); Hematocrit 36.4 % (36.0-45.0); Lymphocytes % 9.3 % (15.3-44.8); RBC Red Blood Cell Count 4.09 M/uL (3.86-4.86)
[2021-09-27] MEDS ORDERED: ACETAMINOPHEN 500 MG TAB PO PRN (06:21)
[2021-09-27] MEDS ORDERED: Ringers Lactate 1,000 ML IV SCH (06:21)
[2021-09-27] MEDS ORDERED: GLUCAGON 1 MG/VIAL IM PRN (06:21)
[2021-09-27] MEDS ORDERED: ONDANSETRON 4 MG/2 ML VIAL IV PRN (06:21)
[2021-09-27] MEDS ORDERED: D50W 25 GM/50 ML SYRINGE IV PRN (06:21)
[2021-09-27] MEDS ORDERED: D10W 125 ML IV PRN (06:27)
[2021-09-27] MEDS ORDERED: KETOROLAC 30 MG/ML INJ IV ONE (07:13)
[2021-09-27] MEDS: INSULIN -REGULAR HUMAN 50 UNIT/0.5 ML ML SQ SCH ×2 (07:30→11:30)
[2021-09-27] MEDS: levETIRAcetam 500 MG in NA CHLORIDE 0.9% 100 ML IV SCH ×2 (07:30→09:00)
[2021-09-27] MEDS ORDERED: KETOROLAC 30 MG/ML INJ ONE (07:45)
[2021-09-27] MEDS ORDERED: ENOXAPARIN 40 MG/0.4 ML SQ SCH (09:00)
[2021-09-27] MEDS ORDERED: levETIRAcetam 500 MG TAB PO SCH (09:00)
--- NOTE | 2021-09-27 09:14 | RAD REPORT ---
EXAM DESCRIPTION: RAD - Chest Single View - 09/27/2021 8:43 am CLINICAL HISTORY: r/o aspiration Chest pain. COMPARISON: Chest Pa And Lat (2 Views) dated 10/30/2016; Abdomen Pelvis W Contrast dated 09/26/2021 FINDINGS: Portable technique limits examination quality. The lungs are grossly clear. The heart is normal in size. No displaced fractures. IMPRESSION: No acute intrathoracic process suspected.
[2021-09-27 09:43] LABS: Magnesium 1.8 mg/dL (1.8-2.4); Phosphorus 2.4 mg/dL (2.5-4.9)
--- NOTE | 2021-09-27 12:03 | RAD REPORT ---
EXAM DESCRIPTION: MRI - Brain W/Wo Cont - 09/27/2021 11:55 am CLINICAL HISTORY: epilepsy protocol Headache, drowsiness, seizure COMPARISON: Head Brain Wo Cont dated 09/26/2021 TECHNIQUE: Multi-sequence, multiplanar MR imaging of the brain was performed with contrast. FINDINGS: No intracranial hemorrhage, hydrocephalus, or extra-axial fluid collection. No edema or sh ift of midline structures. No intracranial mass. DWI is negative for acute CVA. The midline structures are normally formed. Mild polypoid thickening right maxillary antrum. The para nasal sinuses and mastoids are otherwise clear. Post-contrast images show no abnormal enhancement to suggest tumor or infection. IMPRESSION: No potential seizure focus is identified on this examination. No pathologic post-contrast enhancement suspected.
[2021-09-27 16:23] VITALS: BP 130/100; TEMP 98.2; O2SAT 100
--- NOTE | 2021-09-27 23:21 | P.DS ---
Admission Date: 09/27/21 Discharge Date: 09/27/21 Disposition: ROUTINE DISCHARGE Discharge Condition: GOOD Reason for Admission: Seizures Consultations: rToy - Mark Brief History of Present Illness: 20-year-old female history of GERD presents emergency department for seizure. She was here earlier today for first-time seizure significant other bedside reports that she had nausea and vomiting of the day today he gave her a milligrams of Zofran p.o. she took a nap after waking from a nap she took a shower followed by having a 1 minute long tonic-clonic seizure witnessed by family EMS was called and patient was transported to the hospital she was evaluated here in the emergency department her initial labs were significant for a glucose of 303 white blood cell count of 13.8 UDS positive for THC negative salicylate, a lumbar puncture was performed which revealed elevated CSF glucose but otherwise was negative urinalysis with 2+ glucose 1+ ketones patient given IV fluids repeat chemistry was performed her blood sugar improved to 95 she is feeling better and had no more seizure-like activity so she was discharged home to follow-up with neurology outpatient, after returning home patient lay down in bed had another approximately 1 minute long tonic seizure witnessed again by family and was brought back to the emergency department. Patient appears to be mildly postictal at this time repeated the chemistry which was unremarkable ED provider wishes to admit for further evaluation and management of new onset seizures. Hospital Course: Problem List New onset seizure h/o depression marijuana use Patient's symptoms most consistent with seizure activity. CT head and MRI head (epilepsy protocol) were negative for any acute findings. Neurology was consulted, recommended treatment with keppra. Patient was loaded with 1g and continued on 500mg twice daily. She remained stable, had improvement of her symptoms and no further seizure activity. She was deemed stable for discharge with prescription for keppra and to follow up with Dr. Flores in ~3-4 weeks. Lumbar puncture was performed, and negative for infection, she remained afebrile. Patient had first witness seizure activity ~45 minutes after taking zofran. This was first time she took this medication. Possibility of extrapyramidal side effect from this; however presentation more consistent with seizure. Patient was advised to avoid / extra caution with zofran for now as precaution. On further discussion, SO recalled patient had urinated while in bed, which patient did not recall, and may have had an unwitnessed seizure - before taking zofran. Vital Signs/Physical Exam: Temp Pulse Resp BP Pulse Ox 98.2 F 67 18 130/100 H 100 09/27/21 16:21 09/27/21 16:21 09/27/21 16:21 09/27/21 16:21 09/27/21 12:00 General: Alert, In no apparent distress HEENT: EOMI, Sclerae nonicteric Neck: Supple, No LAD Respiratory: Clear to auscultation bilaterally, Normal air movement Cardiovascular: No edema, Regular rate/rhythm Gastrointestinal: Soft and benign, Non-distended, No tenderness Musculoskeletal: No contractures, No tenderness Integumentary: No rashes, No tenderness/swelling Neurological: Normal speech, Normal strength at 5/5 x4 extr, Normal affect Laboratory Data at Discharge: WBC 16.6 K/uL (4.3-10.9) H D 09/27/21 06:00 Hgb 12.3 g/dL (12.0-15.0) 09/27/21 06:00 Hct 36.4 % (36.0-45.0) 09/27/21 06:00 Plt Count 310 K/uL (152-406) 09/27/21 06:00 Sodium 135 mmol/L (136-145) L 09/27/21 03:51 Potassium 3.7 mmol/L (3.5-5.1) 09/27/21 03:51 BUN 8 mg/dL (7-18) 09/27/21 03:51 Creatinine 0.85 mg/dL (0.55-1.3) 09/27/21 03:51 Glucose 164 mg/dL (74-106) H 09/27/21 03:51 Phosphorus 2.4 mg/dL (2.5-4.9) L 09/27/21 09:21 Magnesium 1.8 mg/dL (1.8-2.4) 09/27/21 09:21 Home Medications: levETIRAcetam [Keppra Tab] 500 mg PO BID 30 Days #60 tab 09/27/21 New Medications: levETIRAcetam [Keppra Tab] 500 mg PO BID 30 Days #60 tab Physician Discharge Instructions: Patient's symptoms most consistent with seizure activity. CT head and MRI head (epilepsy protocol) were negative for any acute findings. Neurology was consulted, recommended treatment with keppra. Patient was loaded with 1g and continued on 500mg twice daily. She remained stable, had improvement of her symptoms and no further seizure activity. She was deemed stable for discharge with prescription for keppra and to follow up with Dr. Flores in ~3-4 weeks. Lumbar puncture was performed, and negative for infection, she remained afebrile. Followup: Unknown,U [Primary Care Provider] - Time spent managing pt's care (in minutes): 45
--- NOTE | 2021-09-28 10:29 | EEG ---
CHART: [id number] TEST ID#: [id number] DATE OF STUDY: 09-27-2021 THE EEG WAS RECORDED PORTABLE IN THE EMERGENCY ROOM ON A 17 CHANNEL MACHINE. ELECTRODES WERE APPLIED IN THE USUAL MANNER USING THE INTERNATIONAL 10-20 SYSTEM. THE WAKING BACKGROUND RHYTHM IN THIS RECORD CONSISTS OF WELL DEVELOPED AND WELL ORGANIZED WAVES OF 9 HZ., MAXIMAL IN THE POSTERIOR HEAD REGIONS WHICH ATTENUATE NORMALLY WITH EYE OPENING. LOW-VOLTAGE 18-22 HZ ACTIVITY IS EXPRESSED IN THE FRONTAL REGIONS. THERE ARE NO FOCAL OR LATERALIZING FEATURES. NO EPILEPTIFORM ACTIVITY APPEARS. SLEEP OCCURRED. IN ADDITION NORMAL SLEEP PATTERNS ARE PRESENT. HYPERVENTILATION WAS NOT PERFORMED. PHOTIC STIMULATION PRODUCED FAIR DRIVING BILATERALLY. IMPRESSION: NORMAL EEG FOR THE AGE OF THE PATIENT IN [place], DROWSINESS AND SLEEP.
== END 2021-09-27 16:00 | disposition home or self-care (01) ==
LOC: ER 03:07 → ERHOLD 04:00
PROVIDERS: ADMIT Hospitalist; ATTEND Hospitalist
PROC: 009U3ZX Drainage of Spinal Canal, Percutaneous Approach, Diagnostic (ICD-10-PCS; principal; 2021-09-27)
DX: R56.9 Unspecified convulsions (principal); R73.9 Hyperglycemia, unspecified; F12.90 Cannabis use, unspecified, uncomplicated; F32.A Depression, unspecified; K21.9 Gastro-esophageal reflux disease without esophagitis; Z88.0 Allergy status to penicillin; Z83.3 Family history of diabetes mellitus
CPT/HCPCS: 36415; 70553; 71045; 80048; 82947; 83735; 84100; 85025; 95819; 96374; 99283; A9577; G0378; J1953; J7120

== ENCOUNTER 2022-03-20 07:04 | Emergency (ER) | payer BC ==
--- OUTSIDE RECORDS SUMMARY | 2022-03-20 07:09 | XMS REPORT | Continuity of Care Document ---
:[address] [facility] t Address [address] [place] [address] Care Team Providers Name Role Phone Pcp, Patient Does Not Have A Primary Care Physician [id number] Roxi Bhatt Attending Clinician Unavailable Jody Caro Attending Clinician Unavailable NEIDA GUTHRIE Attending Clinician Unavailable Doctor Unassigned, [place] Attending Clinician Unavailable JENNIFER FERGUSON Attending Clinician Unavailable Nurse, [place] Attending Clinician Unavailable Nelsy Rodriguez PA-C Attending Clinician Abigail Singh RN Attending Clinician Unavailable Only, Ang Db Test Attending Clinician Unavailable Cira Ahmadi MD Attending Clinician CIRA AHMADI Attending Clinician Unavailable Lab, Adc Fam Pob I Attending Clinician Unavailable Shantelle Avendaño Attending Clinician 2, Adc Lab Attending Clinician Unavailable Jennifer Ferguson MD Attending Clinician Physician, No Primary Care Admitting Clinician Unavailable Payers Payer Name Policy Type Policy Number Effective Date Expiration Date S [facility] Blue Cross Blue 6 [id number] [facility] HIM BCBS BLUE [id number] 2020 ADVANTAGE HMO 00:00:00 Blue Cross Blue 6 [id number] [facility] [id number] 2020 HEALTHCARE PPO 00:00:00 Problems Condition Condition Condition Status Onset Resolution Last Treating Co mments Source Name Details Category Date Date Treatment Clinician Date Overactive Overactive Disease Active 2018-02 U nivers bladder bladder 03-01 ity of 00:00: [place] [address] [place] [address] [id number] Well woman Problem Co mmon exam with [facility] gynecologi [facility] [id number] Mild major Problem Com mon depression [facility] [id number] Encounter Problem Com mon for [facility] prescripti [facility] slava [id number] Marijuana Problem Comm on abuse [facility] Allergies, Adverse Reactions, Alerts Allergy Allergy Status Severity Reaction(s) Onset Inactive Treating Comm ents Source Name Type Date Date Clinician PEN[place] DRUG Active Hives Univers IN INGREDI 1-25 ity of 00:00: [address] [place] Propensi Active Hives Univer s in ty to 1-25 ity of adverse 00:00: [place] reaction [address] [place] [address] NO KNOWN Drug Active Univers ALLERGIE Class ity of S [facility] Family History Family Member Diagnosis Comments Start Date Stop Date Source Natural father Diabetes [facility] Natural mother [facility] Social History Social Habit Start Date Stop Date Quantity Comments Source History of Current Smoker Common Spi rit - Tobacco Use [facility] Sex Assigned At Common Sp lora - [facility] Exposure to 2022-02-04 2022-02-14 Not sure [facility] SARS-CoV-2 00:00:00 08:57:00 [facility] (event) [place] Alcohol intake 2022-02-14 2022-02-14 Ex-drinker [facility] 00:00:00 00:00:00 (finding) [facility] Tobacco use and 2021-11-29 2021-11-29 Smokeless tobacco Un iversity of exposure 00:00:00 00:00:00 non-user [facility] Smoking Status Start Date Stop Date Source Unknown if ever smoked Universit y of [facility] Smoker 2021-11-29 00:00:[address] [facility] Current Smoker 2021-11-12 00:00:00 Common Spiri t - [facility] nter Former Smoker 2021-09-28 00:00:00 2021-09-28 00:00:00 Common S pirit - [facility] nter Medications Ordered Filled Start Stop Current Ordering Indication Dosage Frequency Signature Comments Components Source Medication Medication Date Date Medication? Clinician (SIG) Name Name SERTraline 2021-02 Yes [id number] 100mg Take 1 Univers 100 mg 2-28 tablet by ity of tablet 00:00: mouth at [place] 00 bedtime. Medical Branch SERTraline 2021-02 Yes [id number] 100mg Take 1 Univers 100 mg 2-28 tablet by ity of tablet 00:00: mouth at [place] 00 bedtime. Medical Branch mirabegron 2021-02- No Myrbetriq U nivers (MYRBETRIQ) 03-12- 50 mg ity of 50 mg 10:31: 00:00 tablet,ext [place] tablet 29 :00 ended Medical release Branch Take 1 tablet every day by oral route as directed for 30 days. mirabegron 2021-02- No Myrbetriq U nivers (MYRBETRIQ) 03-12- 50 mg ity of 50 mg 10:31: 00:00 tablet,ext [place] tablet 29 :00 ended Medical release Branch Take 1 tablet every day by oral route as directed for 30 days. mirabegron 2021-02- No Myrbetriq U nivers (MYRBETRIQ) 03-12-17 25 mg ity of 25 mg 10:31: 00:00 tablet,ext [place] tablet 23 :00 ended Medical release Branch Take 1 tablet every day by oral route as directed for 90 days. mirabegron 2021-02- No Myrbetriq U nivers (MYRBETRIQ) 03-12-17 25 mg ity of 25 mg 10:31: 00:00 tablet,ext [place] tablet 23 :00 ended Medical release Branch Take 1 tablet every day by oral route as directed for 90 days. levETIRAcet 2021-02 Yes 500mg Take 500 U nivers am 500 mg 1-17 mg by ity of tablet 10:30: mouth in [place] [address] the Medical morning Branch and 500 mg in the evening. levETIRAcet 2021-02 Yes 500mg Take 500 U nivers am 500 mg 1-17 mg by ity of tablet 10:30: mouth in [place] [address] the Medical morning Branch and 500 mg in the evening. levETIRAcet 2021-02 Yes 500mg Take 500 U nivers am 500 mg 1-17 mg by ity of tablet 10:30: mouth in [place] [address] the Medical morning Branch and 500 mg in the evening. levETIRAcet 2021-02 Yes 500mg Take 500 U nivers am 500 mg 1-17 mg by ity of tablet 10:30: mouth in [place] [address] the Medical morning Branch and 500 mg in the evening. SERTraline 2021-02 Yes [id number] 100mg Take 1 Univers 100 mg 1-17 tablet by ity of tablet 00:00: mouth at [place] [address] bedtime. Medical Branch SERTraline 2021-02 Yes [id number] 100mg Take 1 Univers 100 mg 1-17 tablet by ity of tablet 00:00: mouth at [place] [address] bedtime. Medical Branch SERTraline 2021-02- No [id number] 100mg Take 1 Univers 100 mg 1-17 12-28 tablet by ity of tablet 00:00: 00:00 mouth at [place] 00 :00 bedtime. Medical Branch SERTraline 2021-02- No [id number] 100mg Take 1 Univers 100 mg 1-17 12-28 tablet by ity of tablet 00:00: 00:00 mouth at [place] 00 :00 bedtime. Medical Branch escitalopra 2021-02- No 10mg Take 10 mg Univers m oxalate 011-29 by mouth ity o f (LEXAPRO) 11:21: 00:00 in the [place] 10 mg 03 :00 morning. Medical tablet Branch escitalopra 2021-02- No 10mg Take 10 mg Univers m oxalate 011-29 by mouth ity o f (LEXAPRO) 11:21: 00:00 in the [place] 10 mg 03 :00 morning. Medical tablet Branch mv,Ca,min/i 2021-02 Yes Take by Uni vers dinora/FA/guar 0-06 mouth. ity of rosalva/caff 10:17: [place] (ONE-A-DAY 20 Medical WOMEN'S Branch ACTIVE ORAL) mirabegron 2021-02 Yes Myrbetriq Un candice (MYRBETRIQ) 0-06 25 mg ity of 25 mg 10:17: tablet,ext [place] tablet 20 ended Medical release Branch Take 1 tablet every day by oral route as directed for 90 days. mirabegron 2021-02 Yes Myrbetriq Un candice (MYRBETRIQ) 0-06 50 mg ity of 50 mg 10:17: tablet,ext [place] tablet 20 ended Medical release Branch Take 1 tablet every day by oral route as directed for 30 days. pantoprazol 2021-02 Yes 40mg Take 40 mg Univers e 0-06 by mouth ity of (PROTONIX) 10:17: in the [place] 40 mg EC 20 morning. Medical tablet Branch levETIRAcet 2021-02 Yes 500mg Take 500 U nivers am (KEPPRA) 0-06 mg by ity of 500 mg 10:17: mouth in [place] tablet 20 the Medical morning Branch and 500 mg in the evening. mv,Ca,min/i 2021-02 Yes Take by Uni vers dinora/FA/guar 0-06 mouth. ity of rosalva/caff 10:17: [place] (ONE-A-DAY 20 Medical WOMEN'S Branch ACTIVE ORAL) mirabegron 2021-02 Yes Myrbetriq Un candice (MYRBETRIQ) 0-06 25 mg ity of 25 mg 10:17: tablet,ext [place] tablet 20 ended Medical release Branch Take 1 tablet every day by oral route as directed for 90 days. mirabegron 2021-02 Yes Myrbetriq Un candice (MYRBETRIQ) 0-06 50 mg ity of 50 mg 10:17: tablet,ext [place] tablet 20 ended Medical release Branch Take 1 tablet every day by oral route as directed for 30 days. pantoprazol 2021-02 Yes 40mg Take 40 mg Univers e 0-06 by mouth ity of (PROTONIX) 10:17: in the [place] 40 mg EC 20 morning. Medical tablet Branch levETIRAcet 2021-02 Yes 500mg Take 500 U nivers am (KEPPRA) 0-06 mg by ity of 500 mg 10:17: mouth in [place] tablet 20 the Medical morning Branch and 500 mg in the evening. mv,Ca,min/i 2021-02 Yes Take by Uni vers dinora/FA/guar 0-06 mouth. ity of rosalva/caff 10:17: [place] (ONE-A-DAY 20 [facility] WOMEN'S [place] ACTIVE ORAL) pantoprazol 2021-02 Yes 40mg Take 40 mg Univers e 0-06 by mouth ity of (PROTONIX) 10:17: in the [place] 40 mg EC 20 morning. Medical tablet Branch mv,Ca,min/i 2021-02 Yes Take by Uni vers dinora/FA/guar 0-06 mouth. ity of rosalva/caff 10:17: [place] (ONE-A-DAY 20 [facility] [place] ACTIVE ORAL) pantoprazol 2021-02 Yes 40mg Take 40 mg Univers e 0-06 by mouth ity of (PROTONIX) 10:17: in the [place] 40 mg EC 20 morning. Medical tablet Branch mv,Ca,min/i 2021-02 Yes Take by Uni vers dinora/FA/guar 0-06 mouth. ity of rosalva/caff 10:17: [place] [facility] [place] [facility]) pantoprazol 2021-02 Yes 40mg Take 40 mg Univers e 0-06 by mouth ity of (PROTONIX) 10:17: in the [place] 40 mg EC 20 morning. Medical tablet Branch mv,Ca,min/i 2021-02 Yes Take by Uni vers dinora/FA/guar 0-06 mouth. ity of rosalva/caff 10:17: [place] ([facility] [place] [facility]) pantoprazol 2021-02 Yes 40mg Take 40 mg Univers e 0-06 by mouth ity of (PROTONIX) 10:17: in the [place] 40 mg EC 20 morning. Medical tablet Branch SERTraline 2021-02 Yes [id number] 50mg Take 1 U nivers 50 mg 0-06 tablet by ity of tablet 00:00: mouth in [place] 00 the Medical morning. Branch Take 1/2 tab by mouth daily for the first week before transition ing to full dosage. SERTraline 2021-02 Yes [id number] 50mg Take 1 U nivers 50 mg 0-06 tablet by ity of tablet 00:00: mouth in [place] 00 the Medical morning. Branch Take 1/2 tab by mouth daily for the first week before transition ing to full dosage. SERTraline 2021-02- No [id number] 50mg Take 1 Univers 50 mg 0-08 04-17 tablet by ity of tablet 00:00: 00:00 mouth in [place] 00 :00 the Medical morning. Branch Take 1/2 tab by mouth daily for the first week before transition ing to full dosage. SERTraline 2021-02- No [id number] 50mg Take 1 Univers 50 mg 0-08 04-17 tablet by ity of tablet 00:00: 00:00 mouth in [place] 00 :00 the Medical morning. Branch Take 1/2 tab by mouth daily for the first week before transition ing to full dosage. Escitalopra Escitalopra No 1{table QD Escitalopr m Oxalate m Oxalate 4-25 t} am Oxalate 10 MG 10 MG 00:00: 10 MG 00 Escitalopra Escitalopra No 1{table QD Escitalopr m Oxalate m Oxalate 4-25 t} am Oxalate 10 MG 10 MG 00:00: 10 MG 00 Escitalopra Escitalopra 0 No 1{table QD Escitalopr m Oxalate 5 m Oxalate 5 4-01 t} am Oxalate MG MG 00:00: 5 MG 00 mirabegron 2021-0 Yes Myrbetriq Un candice (MYRBETRIQ) 1-18 25 mg ity of 25 mg 11:07: tablet,ext [place] tablet 08 ended Medical release Branch Take 1 tablet every day by oral route as directed for 90 days. mirabegron 2021-0 Yes Myrbetriq Un candice (MYRBETRIQ) 1-18 50 mg ity of 50 mg 11:07: tablet,ext [place] tablet 08 ended Medical release Branch Take 1 tablet every day by oral route as directed for 30 days. mirabegron 2021-0 Yes Myrbetriq Un candice (MYRBETRIQ) 1-18 25 mg ity of 25 mg 11:07: tablet,ext [place] tablet 08 ended Medical release Branch Take 1 tablet every day by oral route as directed for 90 days. mirabegron 2021-0 Yes Myrbetriq Un candice (MYRBETRIQ) 1-18 50 mg ity of 50 mg 11:07: tablet,ext [place] tablet 08 ended Medical release Branch Take 1 tablet every day by oral route as directed for 30 days. medroxyPROG 2021-0 Yes [id number] 150mg Univers ESTERone 6-07 ity of (DEPO-PROVE 15:15: [place] RA) 00 Medical injection Branch 150 mg medroxyPROG 2021-0 Yes [id number] 150mg Univers ESTERone 6-07 ity of (DEPO-PROVE 15:15: [place] RA) 00 Medical injection Branch 150 mg medroxyPROG 2021-0 Yes [id number] 150mg Univers ESTERone 6-07 ity of (DEPO-PROVE 15:15: [place] RA) 00 Medical injection Branch 150 mg medroxyPROG 2021-0 Yes [id number] 150mg Univers ESTERone 6-07 ity of (DEPO-PROVE 15:15: [place] RA) 00 Medical injection Branch 150 mg medroxyPROG 2021-0 Yes [id number] 150mg Univers ESTERone 6-07 ity of (DEPO-PROVE 15:15: [place] RA) 00 Medical injection Branch 150 mg medroxyPROG 2021-0 Yes [id number] 150mg Univers ESTERone 6-07 ity of (DEPO-PROVE 15:15: [place] RA) 00 Medical injection Branch 150 mg medroxyPROG 2021-0 Yes [id number] 150mg Univers ESTERone 6-07 ity of (DEPO-PROVE 15:15: [place] RA) 00 Medical injection Branch 150 mg medroxyPROG 2021-0 Yes [id number] 150mg Univers ESTERone 6-07 ity of (DEPO-PROVE 15:15: [place] RA) 00 Medical injection Branch 150 mg medroxyPROG 2021-0 Yes [id number] 150mg Univers ESTERone 6-07 ity of (DEPO-PROVE 15:15: [place] RA) 00 Medical injection Branch 150 mg medroxyPROG 2021-0 Yes [id number] 150mg Univers ESTERone 6-07 ity of (DEPO-PROVE 15:15: [place] RA) 00 Medical injection Branch 150 mg medroxyPROG 2021-0 Yes [id number] 150mg Univers ESTERone 6-07 ity of (DEPO-PROVE 15:15: [place] RA) 00 Medical injection Branch 150 mg medroxyPROG 2021-0 Yes [id number] 150mg Univers ESTERone 6-07 ity of (DEPO-PROVE 15:15: [place] RA) 00 Medical injection Branch 150 mg medroxyPROG 2020-0 Yes [id number] 150mg Univers ESTERone 6-07 ity of (DEPO-PROVE 15:15: [place] RA) 00 Medical injection Branch 150 mg medroxyPROG 0 2020- No 150mg Univ ers ESTERone 03-24 ity of (DEPO-PROVE 19:45: 19:44 [place] RA) 00 :00 Medical injection Branch 150 mg medroxyPROG 2020-0 2020- No 150mg Univ ers ESTERone 03-24 ity of (DEPO-PROVE 19:45: 19:44 [place] RA) 00 :00 Medical injection Branch 150 mg medroxyPROG 2020-0 2020- No 150mg Univ ers ESTERone 03-24 ity of (DEPO-PROVE 19:45: 19:44 [place] RA) 00 :00 Medical injection Branch 150 mg medroxyPROG 0 2020- No 150mg Univ ers ESTERone 03-24 ity of (DEPO-PROVE 19:45: 19:44 [place] RA) 00 :00 Medical injection Branch 150 mg medroxyPROG 0 2020- No 150mg Univ ers ESTERone 03-24 ity of (DEPO-PROVE 19:45: 19:44 [place] RA) 00 :00 Medical injection Branch 150 mg medroxyPROG 0 2020- No 150mg 150 mg, U nivers ESTERone 03-24 Intramuscu ity of (DEPO-PROVE 19:45: 19:44 lar, [place] RA) 00 :00 [id number], Medical injection 4 doses, Branch 150 mg First dose on Fri03/24/20 at 1345, Last dose on Fri12/01/20 at 1345, Routine mv,Ca,min/i Yes Take by Uni vers dinora/FA/guar 1-25 mouth. ity of rosalva/caff 21:18: [place] (ONE-A-DAY 11 Medical WOMEN'S Branch ACTIVE ORAL) mv,Ca,min/i 0 Yes Take by Uni vers dinora/FA/guar 1-25 mouth. ity of rosalva/caff 21:18: [place] (ONE-A-DAY 11 Medical WOMEN'S Branch ACTIVE [...] (ONE-A-DAY 11 Medical WOMEN'S Branch ACTIVE ORAL) medroxyprog medroxyprog 2018- No 150mg Common esterone ac esterone ac 0-01 S pirit 00:00: - [facility] medroxyprog medroxyprog 2018-02 No 150mg Common esterone ac esterone ac 0-01 S pirit 00:00: - [facility]I 00 [facility] medroxyprog medroxyprog 2018-02 No 150mg Common esterone ac esterone ac 0-01 S pirit 00:00: - [facility]I 00 [facility] medroxyprog medroxyprog 2018-02 No 150mg Common esterone ac esterone ac 0-01 S pirit 00:00: - CHI 00 [facility] medroxyprog medroxyprog 2019-1 No 150mg Common esterone ac esterone ac 0-01 S pirit 00:00: - CHI 00 [facility] medroxyprog medroxyprog 2019-1 No 150mg Common esterone ac esterone ac 0-01 S pirit 00:00: - [facility]I 00 [facility] medroxyprog medroxyprog 2019-1 No 150mg Common esterone ac esterone ac 0-01 S pirit 00:00: - [facility]I 00 [facility] medroxyprog medroxyprog 2019-1 No 150mg Common esterone ac esterone ac 0-01 S pirit 00:00: - [facility]I 00 [facility] medroxyprog medroxyprog 2019-1 No 150mg Common esterone ac esterone ac 0- S pirit 00:00: - [facility]I 00 [facility] medroxyprog medroxyprog 2019-0 No 150mg Common esterone ac esterone ac 7-08 S pirit 00:00: - [facility]I 00 [facility] medroxyprog medroxyprog 2019-0 No 150mg Common esterone ac esterone ac 7-08 S pirit 00:00: - [facility]I 00 [facility] medroxyprog medroxyprog 2019-0 No 150mg Common esterone ac esterone ac 7-08 S pirit 00:00: - [facility]I 00 [facility] medroxyprog medroxyprog 2019-0 No 150mg Common esterone ac esterone ac 7-08 S pirit 00:00: - CHI 00 [facility] medroxyprog medroxyprog 2019-0 No 150mg Common esterone ac esterone ac 7-08 S pirit 00:00: - [facility]I 00 [facility] medroxyprog medroxyprog 2019-0 No 150mg Common esterone ac esterone ac 7-08 S pirit 00:00: - [facility] 00 [facility] medroxyprog medroxyprog 2019-0 No 150mg Common esterone ac esterone ac 7-08 S pirit 00:00: - [facility]I 00 [facility] medroxyprog medroxyprog 2019-0 No 150mg Common esterone ac esterone ac 7-08 S pirit 00:00: - [facility]I 00 [facility] medroxyprog medroxyprog 2019-0 No 150mg Common esterone ac esterone ac 7-08 S pirit 00:00: - [facility]I 00 [facility] medroxyprog medroxyprog 2019-0 No 150mg Common esterone ac esterone ac 4-08 S pirit 00:00: - [facility]I 00 [facility] medroxyprog medroxyprog 2019-0 No 150mg Common esterone ac esterone ac 4-08 S pirit 00:00: - [facility] 00 [facility] medroxyprog medroxyprog 2019-0 No 150mg Common esterone ac esterone ac 4-08 S pirit 00:00: - [facility] medroxyprog medroxyprog 2019-0 No 150mg Common esterone ac esterone ac 4-08 S pirit 00:00: - [facility] medroxyprog medroxyprog 2019-0 No 150mg Common esterone ac esterone ac 4-08 S pirit 00:00: - [facility] medroxyprog medroxyprog 2019-0 No 150mg Common esterone ac esterone ac 4-08 S pirit 00:00: - [facility] 00 [facility] medroxyprog medroxyprog 2019-0 No 150mg Common esterone ac esterone ac 4-08 S pirit 00:00: - [facility] 00 [facility] medroxyprog medroxyprog 2019-0 No 150mg Common esterone ac esterone ac 4-08 S pirit 00:00: - [facility] medroxyprog medroxyprog 2019-0 No 150mg Common esterone ac esterone ac 4-08 S pirit 00:00: - [facility] medroxyprog medroxyprog 2019-0 No 150mg Common esterone ac esterone ac 1-07 S pirit 00:00: - [facility] medroxyprog medroxyprog 2019-0 No 150mg Common esterone ac esterone ac 1-07 S pirit 00:00: - [facility] medroxyprog medroxyprog 2019-0 No 150mg Common esterone ac esterone ac 1-07 S pirit 00:00: - [facility] 00 [facility] medroxyprog medroxyprog 2019-0 No 150mg Common esterone ac esterone ac 1-07 S pirit 00:00: - [facility] 00 [facility] medroxyprog medroxyprog 2019-0 No 150mg Common esterone ac esterone ac 1- S pirit 00:00: - [facility] 00 [facility] medroxyprog medroxyprog 2019-0 No 150mg Common esterone ac esterone ac - S pirit 00:00: - [facility] 00 [facility] medroxyprog medroxyprog 2019-0 No 150mg Common esterone ac esterone ac - S pirit 00:00: - [facility] 00 [facility] medroxyprog medroxyprog 2019-0 No 150mg Common esterone ac esterone ac 03-02 S pirit 00:00: - [facility] 00 [facility] medroxyprog medroxyprog 2019-0 No 150mg Common esterone ac esterone ac - S pirit 00:00: - [facility] 00 [facility] Escitalopra Escitalopra No Escitalopr m Oxalate m Oxalate am Oxalate 10 MG 10 MG 10 MG levETIRAcet levETIRAcet No 1{table BID levETIRAce am 500 MG am 500 MG t} marshall 500 MG Escitalopra Escitalopra No Escitalopr m Oxalate m Oxalate am Oxalate 10 MG 10 MG 10 MG levETIRAcet levETIRAcet No 1{table BID levETIRAce am 500 MG am 500 MG t} marshall 500 MG Pantoprazol Pantoprazol No 1{table QD Pantoprazo e Sodium 40 e Sodium 40 t} le Sodium MG MG 40 MG Escitalopra Escitalopra No Escitalopr m Oxalate m Oxalate am Oxalate 10 MG 10 MG 10 MG levETIRAcet levETIRAcet No 1{table BID levETIRAce am 500 MG am 500 MG t} marshall 500 MG Escitalopra Escitalopra No Escitalopr m Oxalate m Oxalate am Oxalate 10 MG 10 MG 10 MG Pantoprazol Pantoprazol No 1{table QD Pantoprazo e Sodium 40 e Sodium 40 t} le Sodium MG MG 40 MG levETIRAcet levETIRAcet No 1{table BID levETIRAce am 500 MG am 500 MG t} marshall 500 MG Escitalopra Escitalopra No Escitalopr m Oxalate m Oxalate am Oxalate 10 MG 10 MG 10 MG levETIRAcet levETIRAcet No 1{table BID levETIRAce am 500 MG am 500 MG t} marshall 500 MG Escitalopra Escitalopra No Escitalopr m Oxalate m Oxalate am Oxalate 10 MG 10 MG 10 MG Vital Signs Vital Name Observation Time Observation Value Comments Source height 2021-11-12 08:40:00 66.5 [in_i] [facility] weight 2021-11-12 08:40:00 108 [lb_av] [facility] temperature 2021-11-12 08:40:00 97.8 [degF] [facility] bmi 2021-11-12 08:40:00 17.17 kg/m2 [facility] oximetry 2021-11-12 08:40:00 97 % [facility] respiratory rate 2021-11-12 08:40:00 16 /min Comm on [facility] blood pressure 2021-11-12 08:40:00 122 mm[Hg] [facility] [place] systolic [facility] blood pressure 2021-11-12 08:40:00 62 mm[Hg] [facility] - diastolic [facility] height 2021-10-02 09:20:00 65 [in_i] [facility] weight 2021-10-02 09:20:00 115 [lb_av] [facility] temperature 2021-10-02 09:20:00 98 [degF] [facility] bmi 2021-10-02 09:20:00 19.13 kg/m2 [facility] height 2021-07-18 08:20:00 65 [in_i] [facility] weight 2021-07-18 08:20:00 108.6 [lb_av] Common [facility] temperature 2021-07-18 08:20:00 98.2 [degF] Common [facility] bmi 2021-07-18 08:20:00 18.07 kg/m2 [facility] oximetry 2021-07-18 08:20:00 100 % Common [facility] respiratory rate 2021-07-18 08:20:00 16 /min Comm on [facility] blood pressure 2021-07-18 08:20:00 122 mm[Hg] Common [facility] - systolic [facility] blood pressure 2021-07-18 08:20:00 64 mm[Hg] Common [facility] - diastolic [facility] height 2021-06-18 08:20:00 65 [in_i] Common [facility] weight 2021-06-18 08:20:00 110 [lb_av] Common [facility] temperature 2021-06-18 08:20:00 97.6 [degF] Common [facility] bmi 2021-06-18 08:20:00 18.3 kg/m2 [facility] oximetry 2021-06-18 08:20:00 100 % [facility] respiratory rate 2021-06-18 08:20:00 16 /min Comm on [facility] blood pressure 2021-06-18 08:20:00 128 mm[Hg] Common [facility] - systolic [facility] blood pressure 2021-06-18 08:20:00 64 mm[Hg] Common [facility] - diastolic [facility] height 2021-05-25 10:00:00 65 [in_i] Common [facility] weight 2021-05-25 10:00:00 109.6 [lb_av] Common [facility] temperature 2021-05-25 10:00:00 97.9 [degF] Common [facility] bmi 2021-05-25 10:00:00 18.24 kg/m2 Common S pirit - [facility] oximetry 2021-05-25 10:00:00 99 % Common S pirit - [facility] respiratory rate 2021-05-25 10:00:00 16 /min Comm on Spirit - [facility] blood pressure 2021-05-25 10:00:00 139 mm[Hg] [facility] - systolic [facility] blood pressure 2021-05-25 10:00:00 82 mm[Hg] [facility] - diastolic [facility] Systolic blood 2022-02-14 15:00:00 135 mm[Hg] Univer sity of pressure [facility] Diastolic blood 2022-02-14 15:00:00 80 mm[Hg] Unive rsity of [facility] Heart rate 2022-02-14 15:00:00 72 /min [facility] Respiratory rate 2022-02-14 15:00:00 20 /min [facility] Body height 2022-02-14 15:00:00 167.6 cm [facility] Body weight 2022-02-14 15:00:00 49.896 kg [facility] BMI 2022-02-14 15:00:00 17.75 kg/m2 [facility] Respiratory rate 2022-01-10 16:28:00 18 /min [facility] Body height 2022-01-10 16:28:00 167.6 cm [facility] Body weight 2022-01-10 16:28:00 51.483 kg [facility] BMI 2022-01-10 16:28:00 18.32 kg/m2 [facility] Systolic blood 2021-11-29 15:12:00 122 mm[Hg] [facility] Diastolic blood 2021-11-29 15:12:00 83 mm[Hg] Unive rsity of pressure [facility] Heart rate 2021-11-29 15:12:00 61 /min [facility] Respiratory rate 2021-11-29 15:12:00 18 /min [facility] Body height 2021-11-29 15:12:00 167.6 cm [facility] Body weight 2021-11-29 15:12:00 49.805 kg [facility] BMI 2021-11-29 15:12:00 17.72 kg/m2 [facility] Body temperature 2020-06-14 15:25:00 36.78 Rekha [facility] Oxygen saturation in 2020-03-20 21:16:00 98 /min [facility] Arterial blood by [facility] Pulse oximetry Branch Procedures Procedure Date / Time Performing Clinician Source Performed ASSIGNMENT OF BENEFITS 2021-11-29 15:10:15 Doctor Unassigned, No [facility] Name Medical Branch CONSENT/REFUSAL FOR 2021-11-29 14:58:14 [facility] Un[facility], [facility] Medical Branch CONSENT/REFUSAL FOR 2021-11-29 14:58:14 [facility] Un[facility]igned, [facility] Name Medical Branch PSYCHIATRY CLINIC 2021-11-29 05:01:00 Doctor Unassigned, No [facility] PATIENT INFORMATION Name Medical [facility] ch AUTHORIZATION FOR 2021-11-29 05:01:00 Doctor Unassigned, No [facility] RELEASE OF PHI Name Medical Branch REFERRAL- 2021-11-15 05:01:00 Doctor Unassigned, No [facility] REQUEST/RESPONSE Name Medical Branch REFERRAL- 2021-11-15 05:01:00 Doctor Unassigned, No [facility] REQUEST/RESPONSE Name Medical Branch PROLACTIN 2020-03-21 19:25:00 [facility] THYROID STIMULATING 2020-03-21 19:25:00 Oli [facility] Branch BASIC METABOLIC PANEL 2020-03-21 19:25:00 [facility] (NA, K, CL, CO2, Medical Branch GLUCOSE, BUN, CREATININE, CA) LIPID PANEL 2020-03-21 19:25:00 [facility] ([id number])(TOTAL Medical Branch CHOLESTEROL, TRIGLYCERIDES, HDL) ADC OR FLORES ONLY - 2020-03-21 19:25:00 [facility] RPR Medical Branch HIV 1/2 AG-AB WITH 2020-03-21 19:25:00 Jennifer Ferguson [facility] Branch ASSIGNMENT OF BENEFITS 2020-03-20 20:55:16 Doctor Unassigned, No [facility] Medical Branch Encounters Start End Encounter Admission Attending Care Care Encounter Source Date/Time Date/Time Type Type Clinicians Facility Department ID 2022-03-07 Outpatient Bhatt, STCARY[facility] [id number] Common 10:05:01 [place] [address] [facility] 2021-09-28 Outpatient Bhatt, STLC [facility] [id number] Common 11:18:03 [place] 2021-07-20 Outpatient Bhatt, [facility] [id number] Common 08:07:02 [place] [facility] 2021-05-25 Outpatient Bhatt, [facility] [id number] Common 09:09:04 [place] [facility] 2019-04-25 Inpatient MARQUISE Caro, [facility] [id number] [facility] 00:02:00 Jody 13 [facility] 2019-03-30 Inpatient MARQUISE Caro, [facility]T [id number] [facility] 14:04:00 Jody 57 [facility] 2022-03-06 2022-03-06 (TEL) [facility] [id number] Co mmon 00:00:00 00:00:00 [facility] 2022-02-14 2022-02-14 Outpatient Rae GUTHRIE [facility] [id number] Univers 09:15:00 09:56:33 TRANSON ity [facility] 2022-02-14 2022-02-14 Travel 1.2.840.1 [id number] [id number] Univers 00:00:00 00:00:00 93681.1.1 350.1.13.10 ity of 3.104.2.[place]3.7485[place] 084.8 Medica l .8 Branch 2022-01-10 2022-01-10 Outpatient R [facility] [id number] Univers 10:45:00 11:04:21 TRANSON ity [facility] 2022-01-10 2022-01-10 Travel 1.2.840.1 [id number] Univers 00:00:00 00:00:00 88875.1.1 350.1.13.10 ity of 3.104.2.[place]3.309566 084.8 Medica l .8 [place] 2021-11-29 2021-11-29 Outpatient R [facility] [id number] Univers 10:15:00 11:18:44 TRANSON ity [facility] 2021-11-29 2021-11-29 Orders Doctor 1.2.840.0 [id number] Univers 00:00:00 00:00:00 Only Unassigned, 01621.1.1 ity of [place] 3.104.2.7 [place] .3.573965 Medica l .8 [place] 2021-11-29 2021-11-29 Travel 1.2.840.1 1.2.866.397 [id number] Univers 00:00:00 00:00:00 27506.1.1 350.1.13.10 it[place] of 3.104.2.7 [place].698 [place] .3.946381 084.8 Medica l .8 [place] 2021-11-15 2021-11-15 Orders Doctor 1.2.840.3 [id number] Univers 00:00:00 00:00:00 Only Unassigned, 94154.1.1 ity of [place] 3.104.2.7 [place] .3.149060 Medica l .8 [place] 2021-11-12 2021-11-12 OFFICE [facility] [id number] Co mmon 00:00:00 00:00:00 VISIT EST Spir it PT LEVEL 3 - [facility] 2021-10-02 2021-10-02 OFFICE STLMLC STLMLC [id number] Co mmon 00:00:00 00:00:00 VISIT Spirit ESTAB PT - CHI LEVEL 4 [facility] 2021-10-02 2021-10-02 (TEL) STLMLC STLMLC [id number] Co mmon 00:00:00 00:00:00 [facility] 2021-09-28 2021-09-28 (TEL) STLMLC STLMLC [id number] Co mmon 00:00:00 00:00:00 [facility] 2021-07-18 2021-07-18 OFFICE STLMLC STLMLC [id number] Co mmon 00:00:00 00:00:00 VISIT EST Spir it PT LEVEL 3 [facility] 2021-06-19 2021-06-19 (TEL) STLMLC STLMLC [id number] Co mmon 00:00:00 00:00:00 [facility] 2021-06-18 2021-06-18 OFFICE STLMLC STLMLC [id number] Co mmon 00:00:00 00:00:00 VISIT EST Spir it PT LEVEL 3 [facility] 2021-05-25 2021-05-25 OFFICE STLMLC STLMLC [id number] Co mmon 00:00:00 00:00:00 VISIT NEW Spir it PT LEVEL 3 [facility] 2021-03-20 2021-03-20 Outpatient R JENNIFER FERGUSON [facility] [id number] Univers 14:00:00 14:00:00 ity [facility] 2020-12-06 2020-12-06 Nurse Nurse, Lkj Avis [facility] 1.2.840. 114 [id number] Univers 10:00:39 10:24:33 Visit Nelsy Rodriguez 350.1.13.10 [facility] of [facility] 4[facility]2.7.2.686 [place] [facility] [phone] [address] 2020-12-06 2020-12-06 Outpatient R [facility] [id number] Univers 10:20:00 10:20:00 ity [facility] 2020-12-06 2020-12-06 Outpatient R [facility] [id number] Univers 10:00:00 10:00:[address] [facility] 2020-11-12 2020-11-12 Telephone CHANCE Singh 1.2.524.805 [id number] Univers 00:00:00 00:00:00 Abigail HARGROVE 350.1.13.10 it y of [facility] 4.2.7.2.686 Parmjit as [phone] [address] 2020-11-11 2020-11-11 Laboratory Only, Ang Db Test [facility] 1.2.8 40.114 [id number] Univers 09:03:10 09:18:10 Only Song, [facility] 350.1.13.10 ity of [place] 4.2.7.2.686 Parmjit as Timur?Blea [id number] Ia osei woodward [address] [place] [facility] 2020-11-11 2020-11-11 Outpatient R GALDINO [facility] [id number] Univers 09:15:00 09:15:00 CIRA ity [facility] 2020-09-07 2020-09-07 Outpatient R [facility] [id number] Univers 10:00:00 10:00:00 ity [facility] 2020-09-06 2020-09-06 Outpatient R JENNIFER FERGUSON [facility] [id number] Univers 10:00:00 10:00:00 ity [facility] 2020-08-04 2020-08-04 Laboratory Lab, Adc Fam Pob I [facility] 1.2. 840.114 [id number] Univers 14:55:01 15:00:42 Only [facility] 350.1.13.10 ity of [place] 4.2.7.2.686 Parmjit as Professio [phone] Ia osei louie [address] [place] [address] 2020-08-04 2020-08-04 Outpatient R [facility] [id number] Univers 15:00:00 15:00:00 ity [facility] 2020-06-14 2020-06-14 Outpatient R [facility] [id number] Univers 10:00:00 10:00:[address] 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 Lab [facility] 1.2.840.114 [id number] Univers 13:18:52 13:33:52 Visit Jennifer Ferguson [place] 350.1.13.10 it[place]2.[place] Profess[place] [phone] Ia dical nal [address] [facility] 2020-03-21 2020-03-21 Outpatient R [facility] [id number] Univers 13:15:00 13:15:00 ity [facility] 2020-03-20 2020-03-20 Outpatient R JENNIFER FERGUSON [facility] [id number] Univers 15:00:00 15:00:00 ity [facility] 2020-03-20 2020-03-20 Orders Doctor CHANCE 1.2.840.114 [id number] Univers 00:00:00 00:00:00 Only Unassigned, DELVIN 350.1.13.10 ity of [place] [facility] 4.2.7.2.686 Parmjit as [phone] [address] 2019-03-02 2019-03-02 Outpatient MARQUISE Caro [facility] [id number] 14:37:00 14:37:00 [facility] Results Test Description Test Time Test Comments Results Result Comments Source ANEUDY OR FLORES ABDUL - RPR 2020-03-23 07:59:00 Test Item Value Reference Range Interpretation Comme nts RPR (Qualitative) (test code = 23119-2) Nonreactive Nonreactive Lab Interpretation (test code = 88787-4) Normal [facility] 01:59:00 Test Item Value Reference Range Interpretation Comments PROLACTIN (test code = 7693325655) 8.8 ng/mL 3.3-26.7 Lab Interpretation (test code = Normal 52676-8) [facility] AG-AB WITH [id number] 22:10:00 Test Item Value Reference Range Interpretation Comments HIV Negative Negative Semi-quantitative (test code = 21522-6) TREE (test code = Non-reactive for HIV-1 TREE) antigen and HIV-1/HIV-2 antibodies. ?No laboratory evidence of HIV infection. ?Repeat in 2-4 weeks if acute HIV infection is suspected. [facility] [id number] 22:01:00 Test Item Value Reference Range Interpretation Comments TSH (test code = See_Comment [Automated message] [id number]) The system [employer] generated this result transmitted ref erence range: 0.45 - 4 .70 mIU/L. The refe rence range was not u sed to interpret this result as normal/abnor mal. Lab Interpretation (test Normal code = 42530-1) [facility] (06812)(TOTAL CHOLESTEROL, TRIGLYCERIDES, HDL)2020-03-21 21:32:00 Test Item Value Reference Range Interpretation Comments CHOL (test code = 180 mg/dL 120-200 [id number]) HDL (test code = 64 mg/dL >50 9601243954) HDLC RATIO (test code = See_Comment [Au tomated message] [id number]) The system [employer] generated this result transmit reyes reference range : <=4.5. The refe rence range was not u sed to interpret th is result as normal/abnormal . TRIG (test code = 50 mg/dL 30-170 8734333128) LDL CHOL (test code = 106 mg/dL See_Comment [Auto mated message] 85357-9) The system [employer] generated this result transmit reyes reference range : <=160. The refe rence range was not u sed to interpret th is result as normal/abnormal . VLDL (test code = 10 mg/dL 5-60 2474874704) Lab Interpretation (test Normal code = 05823-8) [facility] (NA, K, CL, CO2, GLUCOSE, BUN, CREATININE, CA)2020-03-21 21:31:00 Test Item Value Reference Range Interpretation Comments NA (test code = 139 mmol/L 135-145 8396715336) K (test code = 4.3 mmol/L 3.5-5 2068776585) CL (test code = 101 mmol/L 98-108 2757588392) CO2 TOTAL (test code = 29 mmol/L 23-31 7224331900) AGAP (test code = 2-16 1528380528) BUN (test code = 9 mg/dL 7-23 9532859408) GLUCOSE (test code = 90 mg/dL 70-110 7551495103) CREATININE (test code 0.68 mg/dL 0.5-1.04 = 8549993534) CALCIUM (test code = 9.7 mg/dL 8.6-10.6 6022285922) eGFR Calculation mL/min/1.73m2 (Non-) (test code = 1755244746) eGFR Calculation mL/min/1.73m2 () (test code = 8071025572) TREE (test code = TREE) Association of [...] or urine or abnormalities in imaging tests). [facility]"
[2022-03-20] MEDS ORDERED: ROCURONIUM 50 MG/5 ML VIAL IV ONE ×2 (07:12→07:18)
[2022-03-20] MEDS ORDERED: propofoL 1,000 MG/100 ML VIAL IV ONE ×2 (07:12→12:00)
[2022-03-20] MEDS ORDERED: NA CHLORIDE 0.9% 100 ML ONE (07:21)
[2022-03-20] MEDS ORDERED: LEVETIRACETAM 500 MG/5 ML VIAL IV ONE (07:21)
[2022-03-20 07:31] LABS: Arterial Blood Carboxyhemoglob 0.2 % (0-1.5); Blood Gas Oxyhemoglobin 91.3 % (94-97); Blood O2 Saturation 93.2 % (92-98.5)
[2022-03-20] MEDS ORDERED: Ringers Lactate 1,000 ML IV ONE ×2 (07:45→09:50)
[2022-03-20 07:48] LABS: Lymphocytes % 51.7 % (15.3-44.8); MCV 102.4 fL (80-100); MPV 7.3 fL (7.6-11.3); RBC Red Blood Cell Count 3.03 M/uL (3.86-4.86)
[2022-03-20 08:13] LABS: ALT/SGPT 44 U/L (13-56); AST/SGOT 35 U/L (15-37); Albumin 2.5 g/dL (3.4-5.0); Alkaline Phosphatase 69 U/L (45-117); BUN Blood Urea Nitrogen 12 mg/dL (7-18); Bicarbonate < 8 mmol/L (21-32); Bilirubin Total 0.2 mg/dL (0.2-1.0); Glomerular Filtration Rate 90 ml/min (=/>90); Glucose Level 241 mg/dL (74-106); Protein, Total 4.7 g/dL (6.4-8.2); Sodium Level 146 mmol/L (136-145)
[2022-03-20 08:14] LABS: Potassium 2.6 mmol/L (3.5-5.1)
[2022-03-20 08:17] LABS: SARS-CoV-2 Antigen Rapid Res Negative (Negative)
[2022-03-20 08:25] LABS: Specific Gravity 1.009 (1.005-1.030); Urine Bacteria None Seen /HPF (<20); Urine Bilirubin NEGATIVE (Negative); Urine Blood 1+ (Negative); Urine Clarity Clear (Clear); Urine Color Colorless (Yellow); Urine Glucose 3+ (Negative); Urine Mucus Slight /HPF (None Seen); Urine Protein TRACE (Negative); Urine RBC <5 /HPF (None Seen); Urine Urobilinogen Normal (Normal); Urine pH 5.5 (5.0-7.0)
--- NOTE | 2022-03-20 08:25 | RAD REPORT ---
EXAM DESCRIPTION: [place] Single View03/20/2022 8:01 am CLINICAL HISTORY: Device placement endotracheal tube placement COMPARISON: September 2021 FINDINGS: Endotracheal tube has its tip at level of the aortic arch. Nasogastric tube is present sto mach. Patient is rotated. The lungs appear clear of acute infiltrate. The heart is normal size
--- NOTE | 2022-03-20 08:31 | RAD REPORT ---
EXAM DESCRIPTION: CT - Head Brain Wo Cont - 03/20/2022 8:21 am CLINICAL HISTORY: Seizure COMPARISON: September 2021 TECHNIQUE: Computed axial tomography of the head was obtained. IV contrast was not requested. All CT scans are performed using dose optimization technique as appropriate and may include automated exposure control or mA/KV adjustment according to patient size. FINDINGS: An intracranial bleed is not seen . The ventricles are normal in caliber. No significant hypodense areas within the brain visualized No extra-axial fluid collection is noted. IMPRESSION: No acute intracranial abnormality is seen. If patient's symptoms persist MRI of the bra in would be recommended.
[2022-03-20] MEDS ORDERED: KCL 20 MEQ/100 mL IVPB 100 ML IV ONE ×2 (08:51→10:36)
[2022-03-20] MEDS ORDERED: POTASSIUM 25 MEQ EFFERV TAB ONE (08:51)
[2022-03-20] MEDS ORDERED: INSULIN -REGULAR HUMAN 100 UNIT in NA CHLORIDE 0.9% 100 ML IV SCH (09:00)
[2022-03-20 09:04] LABS: Blood Morphology Comment NOT SEEN (NOT SEEN); Platelet Estimate ADEQ
[2022-03-20] MEDS ORDERED: FENTANYL CITR 100 MCG/2 ML ONE ×2 (09:40→11:59)
--- NOTE | 2022-03-20 09:51 | ER ---
[facility] Name: Colleen Fong Age: 21 yrs Sex: Female : 2000 Arrival Date: 03/20/2022 Time: 07:07 Bed 3 Private MD: Diagnosis: Epilepsy, unspecified, not intractable, with status epilepticus;Hypokalemia;Acute respiratory failure Presentation: 03/20 07:05 Chief complaint: EMS states: toned out for status epilepticus X 45 minutes, hx of iw seizures recently taken off Keppra 3 days ago , arrives to ER, obtunded, assisted respirations by EMS via ambu bag. Coronavirus screen: At this time, the client does not indicate any symptoms associated with coronavirus-19. Ebola Screen: Patient negative for fever greater than or equal to 101.5 degrees Fahrenheit, and additional compatible Ebola Virus Disease symptoms Patient denies exposure to infectious person. Patient denies travel to an Ebola-affected area in the 21 days before illness onset. No symptoms or risks identified at this time. Risk Assessment: Do you want to hurt yourself or someone else? Patient reports no desire to harm self or others. 07:05 Method Of Arrival: EMS: [facility] iw 07:05 Acuity: KYLE 1 iw 07:47 Initial Sepsis Screen: Does the patient meet any 2 criteria? No. Patient's initial ph sepsis screen is negative. Does the patient have a suspected source of infection? No. Patient's initial sepsis screen is negative. Onset of symptoms was March 20, 2022. Historical: - Allergies: 07:47 PENICILLINS; ph - PMHx: 07:47 Seizure; ph - Immunization history:: Adult Immunizations unknown. - Social history:: Smoking status: unknown. - Unable to obtain history due to: obtunded state. Screenin:46 [facility] ED Fall Risk Assessment (Adult) History of falling in the last 3 months, ph including since admission No falls in past 3 months (0 pts) Confusion or Disorientation No (0 pts) Intoxicated or Sedated Yes (3 pts) Impaired Gait No (0 pts) Mobility Assist Device Used No (0 pt) Altered Elimination No (0 pt) Score/Fall Risk Level 3 or more points = High Risk Oriented to surroundings, Maintained a safe environment, Hourly rounding (assess needs \T\ fall precautionary measures) done. Abuse screen: Denies threats or abuse. Denies injuries from another. Nutritional screening: No deficits noted. Tuberculosis screening: No symptoms or risk factors identified. Assessment: 07:05 General: Appears ill, well developed, Behavior is unresponsive. Pain: Unable to use iw pain scale. Patient is unresponsive. Neuro: Ulrich Agitation-Sedation Scale (RASS): -5 Unarousable Level of Consciousness is post ictal, unresponsive, Oriented to none. Cardiovascular: Capillary refill < 3 seconds in bilateral fingers Patient's skin is warm and dry. Respiratory: Airway is compromised via nasal trumpet Respiratory effort is labored, gasping, Respiratory pattern is agonal. GI: Abdomen is flat, non-distended. Derm: Skin is intact, is healthy with good turgor. 07:11 Reassessment: Dr. Reyes at bedside, set up for intubation , RT at bedside. iw 07:58 Reassessment: pt successfully intubated, evans in place, NGT in place, propofol iw infusing at 20 mcg/kg/min awaiting CT. 08:28 Reassessment: pt back from CT, family at bedside speaking to Dr. Reyes. iw 10:30 Reassessment: Pt noted to be restless, moving around, SPO2 88%, ET Tube suctioned x2 jl7 with increase in O2 to 90%, propofol infusion increased to 40 mcg/kg/min. Pt O2 increased to 94%. 10:54 Reassessment: Patient appears in no apparent distress at this time. Report called to SAROJ whitehead at [facility], transfer form signed by father. 11:40 Reassessment: report given to [facility]. sue 11:55 Reassessment: pt began vomiting bile and fighting ET tube. Pt suctioned and VO from Dr. sue Reyes to give Zofran and Fentanyl. Vital Signs: 07:23 Pulse Ox 100% on ETT vent; Weight 49.9 kg; Height 5 ft. 4 in. (162.56 cm); iw 07:45 BP 129 / 99; Pulse 92; Resp 23; Pulse Ox 100% on ETT vent; ph 07:57 BP 130 / 63; Pulse 82; Resp 16 A; Pulse Ox 100% on ETT vent; iw 08:28 BP 129 / 60; Pulse 82; Resp 20; Pulse Ox 100% on ETT vent; iw 10:38 BP 112 / 64; Pulse 85; Resp 18; Temp 97.7; Pulse Ox 93% on ETT vent; ph 11:41 BP 121 / 83; Pulse 84; Resp 26; Pulse Ox 97% on ETT vent; mb9 12:01 BP 111 / 96; Pulse 101; Resp 20; Pulse Ox 96% on ETT vent; mb9 07:23 Body Mass Index 18.88 (49.90 kg, 162.56 cm) iw Darrow Coma Score: 07:07 Eye Response: none(1). Verbal Response: none(1). Motor Response: withdraws from jl7 pain(4). Total: 6. ED Course: 07:07 Patient arrived in ED. iw 07:15 Assisted provider with intubation using 7.5 mm ETT via oral route. ET tube secured at ph 28cm at the teeth. Set up intubation tray. Intubated by Eric Reyes MD Placement verified by auscultating bilateral breath sounds, Patient tolerated well. 07:18 Eric Reyes MD is Attending Physician. rt 07:23 Triage completed. iw 07:23 Makenzie Bailey, RN is Primary Nurse. iw 07:25 Inserted saline lock: 22 gauge in left hand, using aseptic technique. Maintain EMS IV. ph Dressing intact. Good blood return noted. Site clean \T\ dry. Gauge \T\ site: 20 LAC. 07:40 Evans cath inserted, using sterile technique, 16 Fr., by production team member, balloon inflated, to ph gravity drainage, urine specimen collected. 07:45 NGT: inserted 14 Fr. via left nare. verified placement of air over stomach, Patient ph tolerated well. 07:46 Arm band placed on Patient placed in an exam room, on a stretcher, on oxygen, on ph computer system specialist, on pulse oximetry. 07:48 Patient has correct armband on for positive identification. Placed in gown. Bed in low ph position. Side rails up X2. Seizure precautions initiated. Client placed on continuous cardiac and pulse oximetry monitoring. NIBP monitoring applied. 08:03 Chest Single View XRAY In Process Unspecified. EDMS 08:22 CT Head Brain wo Cont In Process Unspecified. EDMS 09:41 initiated transfer to [facility]. bd 11:42 Patient transferred, IV remains in place. mb9 Administered Medications: 07:11 Drug: Propofol 75 mg Route: IVP; Site: left antecubital; iw 07:20 Follow up: Response: No adverse reaction jl7 07:11 Drug: Rocuronium 75 mg Route: IVP; Site: left antecubital; iw 07:45 Follow up: Response: No adverse reaction jl7 07:24 Drug: Keppra (levETIRAcetam) 2000 mg Route: IV; Rate: bolus; Site: left antecubital; iw 08:00 Follow up: Response: No adverse reaction; IV Status: Completed infusion jl7 07:39 Drug: Propofol 5 mcg/kg/min Route: IV; Rate: calculated rate; Site: left antecubital; iw 07:50 Follow up: Rate change 20 mcg/kg/min iw 07:55 Follow up: Response: RASS: Restless (+1); Rate change 25 mcg/kg/min jl7 08:00 Follow up: Response: RASS: Light sedation (-2) jl7 08:30 Follow up: Response: RASS: Restless (+1); Rate change 30 mcg/kg/min jl7 08:40 Follow up: Response: RASS: Light sedation (-2) jl7 09:30 Follow up: Response: RASS: Restless (+1); Rate change 35 mcg/kg/min jl7 09:30 Follow up: Response: RASS: Restless (+1) jl7 10:30 Follow up: Response: RASS: Restless (+1); Rate change 40 mcg/kg/min jl7 11:05 Follow up: Response: RASS: Light sedation (-2) 7 07:50 Drug: Lactated Ringers Solution 1000 ml Route: IV; Rate: bolus; Site: left hand; iw 09:00 Follow up: Response: No adverse reaction; IV Status: Completed infusion; IV Intake: jl7 1000ml 09:38 Drug: fentaNYL (PF) 50 mcg Route: IVP; Site: left hand; 5 10:00 Follow up: Response: No adverse reaction jl7 10:28 Drug: Potassium Chloride 40 mEq Route: IV; Rate: calculated rate; Site: left ph antecubital; 12:30 Follow up: IV Status: Infusion continued upon transfer iw 10:50 Not Given (Physician Discretion): Potassium Chloride Liquid 40 mEq PO once jl7 10:50 Drug: Calcium Gluconate 1 grams Route: IVPB; Infused Over: 60 mins; Site: left hand; jl7 12:01 Follow up: Response: No adverse reaction; IV Status: Completed infusion mb9 10:55 Not Given (Physician Discretion): Insulin Drip - (Insulin Regular Human 100 units, NS ph 0.9% 100 ml) IV at calculated rate continuous; Standard concentration 1unit/ml; Dose for DKA is 0.1 units/kg/hr 11:55 Drug: fentaNYL (PF) 50 mcg Route: IVP; Site: left hand; mb9 12:00 Follow up: Response: No adverse reaction mb9 11:58 Drug: Zofran (Ondansetron) 4 mg Route: IVP; Site: left hand; mb9 12:01 Follow up: Response: No adverse reaction mb9 Medication: 07:47 VIS not applicable for this client. ph Intake: 09:00 IV: 1000ml; Total: 1000ml. jl7 Output: 12:02 Urine: 1000ml (Evans); Total: 1000ml. mb9 12:02 Gastric: 150ml (Emesis); Total: 1150ml. mb9 Outcome: 09:50 ER care complete, transfer ordered by . rt 11:41 Transferred mb9 11:41 Condition: stable 11:42 Transferred by ground EMS to [facility], Transfer form completed. mb9 X-rays sent w/ patient. 11:42 Instructed on the need for transfer. 11:42 Patient left the ED. mb9 12:35 Patient left the ED. mb9 Signatures: Dispatcher [employer] EDShanique Jo Irene, RN Kaylie Rees RN Shannen Mejia ph, RN RN Lary Wolf RN RN jh5 Breneman, Mary Beth, RN RN [id number] Eric Reyes MD MD rt
--- NOTE | 2022-03-20 09:51 | EDPHYS ---
Physician Documentation [facility] Name: Colleen Fong Age: 21 yrs Sex: Female : 2000 Arrival Date: 03/20/2022 Time: 07:07 Bed 3 Private MD: ED Physician Eric Reyes HPI: 03/20 07:40 This 21 yrs old Female presents to ER via EMS with complaints of Seizure. rt 07:40 Unable to obtain HPI due to obtunded state. History obtained by EMS due to altered rt mental status. Patient was reportedly taken off of her Keppra about 3 days ago. Patient found to be in a seizure. Reportedly had convulsive activity for about 40 minutes, received a total of 4 mg of Ativan that did stop the seizure like activity. Reportedly had a blood glucose of 300 with ketones. No further history could be obtained. Symptoms are severe in severity, no other reported aggravating or alleviating factors. Historical: - Allergies: 07:47 PENICILLINS; ph - PMHx: 07:47 Seizure; ph - Immunization history:: Adult Immunizations unknown. - Social history:: Smoking status: unknown. - Unable to obtain history due to: obtunded state. ROS: 07:40 Unable to obtain ROS due to altered mental status. rt Exam: 08:02 Head/Face: Normocephalic, atraumatic. Chest/axilla: Normal chest wall appearance and rt motion. Nontender with no deformity. No lesions are appreciated. Cardiovascular: Regular rate and rhythm with a normal S1 and S2. No gallops, murmurs, or rubs. Normal PMI, no JVD. No pulse deficits. Abdomen/GI: Soft, non-tender, with normal bowel sounds. No distension or tympany. No guarding or rebound. No evidence of tenderness throughout. MS/ Extremity: Pulses equal, no cyanosis. Neurovascular intact. Full, normal range of motion. 08:02 Constitutional: The patient appears Appears to be currently seizing with rightward gaze deviation, obtunded, in acute distress 08:02 Eyes: Pupils dilated, right gaze deviation. 08:02 ECG was reviewed by the Attending Physician. 08:02 Respiratory: Coarse respirations heard. 08:02 Neuro: Obtunded, no response to noxious stimuli. 08:02 Psych: Not assessable. Vital Signs: 07:23 Pulse Ox 100% on ETT vent; Weight 49.9 kg; Height 5 ft. 4 in. (162.56 cm); iw 07:45 BP 129 / 99; Pulse 92; Resp 23; Pulse Ox 100% on ETT vent; ph 07:57 BP 130 / 63; Pulse 82; Resp 16 A; Pulse Ox 100% on ETT vent; iw 08:28 BP 129 / 60; Pulse 82; Resp 20; Pulse Ox 100% on ETT vent; iw 10:38 BP 112 / 64; Pulse 85; Resp 18; Temp 97.7; Pulse Ox 93% on ETT vent; ph 11:41 BP 121 / 83; Pulse 84; Resp 26; Pulse Ox 97% on ETT vent; mb9 12:01 BP 111 / 96; Pulse 101; Resp 20; Pulse Ox 96% on ETT vent; mb9 07:23 Body Mass Index 18.88 (49.90 kg, 162.56 cm) iw [place] Coma Score: 07:07 Eye Response: none(1). Verbal Response: none(1). Motor Response: withdraws from jl7 pain(4). Total: 6. Procedures: 11:18 Intubation: Ventilated with 100% NRB prior to procedure. O2 saturation prior to rt procedure was 98 %. Intubated orally using glidescope with 7.5 mm ETT. was successful on first attempt. Ventilated with ventilator. Tube secured with ETT campo Placement verified by CXR, CO2 detector with (+) color change, auscultating bilateral breath sounds, O2 saturation after procedure was 100 %. Patient tolerated well. MDM: 07:19 Patient medically screened. rt 11:18 Differential diagnosis: seizure, Status epilepticus, DKA, electrolyte disturbance. Data rt reviewed: vital signs, nurses notes, lab test result(s), EKG, radiologic studies. Consideration of Admission/Observation Escalation of care including admission/observation considered. Management of patient was discussed with the following: Street Department Dispatcher: Neurologist, recommends transfer for continuous EEG monitoring. I considered the following discharge prescriptions or medication management in the emergency department Medications were administered in the Emergency Department. See MAR. Independent interpretation of the following test(s) in the Emergency Department X-Ray: My interpretation is Chest x-ray reviewed, ET tube in appropriate position. Historians other than the Patient: EMS: . Parent: . Response to treatment: the patient's symptoms have markedly improved after treatment. ED course: Consideration was given to diabetic ketoacidosis, patient has no prior history of diabetes. High anion gap metabolic acidosis likely due to prolonged seizure. Repeat BMP shows closure of the gap prior to any insulin, was canceled. Ketones are negative. Patient was significant improving blood gas on ventilator.. 03/20 07:22 Order name: CBC with Diff rt 03/20 07:22 Order name: CMP; Complete Time: 08:27 rt 03/20 07:22 Order name: Magnesium; Complete Time: 08:27 rt 03/20 07:22 Order name: Ketone, Serum; Complete Time: 08:27 rt 03/20 07:22 Order name: ABG; Complete Time: 10:31 rt 03/20 07:22 Order name: ETOH Level; Complete Time: 08:12 rt 03/20 07:22 Order name: Acetaminophen; Complete Time: 08:27 rt 03/20 07:22 Order name: Salicylate; Complete Time: 08:12 rt 03/20 07:22 Order name: UDS; Complete Time: 09:59 rt 03/20 07:22 Order name: Test, Serum; Complete Time: 08:18 rt 03/20 07:22 Order name: UA; Complete Time: 08:27 rt 03/20 07:22 Order name: Lactate w/ 2H reflex if indic.; Complete Time: 08:12 rt 03/20 07:22 Order name: SARS RAPID; Complete Time: 08:18 rt 03/20 08:00 Order name: Glucose, Ancillary Testing; Complete Time: 08:12 EDMS 03/20 07:22 Order name: Chest Single View XRAY; Complete Time: 08:27 rt 03/20 07:22 Order name: CT Head Brain wo Cont; Complete Time: 08:41 rt 03/20 09:04 Order name: Manual Differential EDMS 03/20 09:20 Order name: BMP; Complete Time: 11:59 rt 03/20 09:39 Order name: Hemoglobin A1c rt 03/20 09:44 Order name: Glucose, Ancillary Testing; Complete Time: 09:47 EDMS 03/20 10:26 Order name: ABG Arterial Blood Gas; Complete Time: 10:31 EDMS 03/20 07:22 Order name: Urine Dipstick-Ancillary (obtain specimen); Complete Time: 07:50 rt 03/20 07:22 Order name: Mica; Complete Time: 07:40 rt 03/20 07:27 Order name: EKG; Complete Time: 07:28 rt 03/20 07:27 Order name: EKG - Nurse/Tech; Complete Time: 07:57 rt EC:02 Rate is 87 beats/min. Rhythm is regular, Normal Sinus Rhythm with No ectopy. QRS [place] rt is Normal. NV interval is normal. QRS interval is normal. QT interval is normal. No Q waves. T waves are Normal. No ST changes noted. Clinical impression: Normal ECG. Interpreted by me. Administered Medications: 07:11 Drug: Propofol 75 mg Route: IVP; Site: left antecubital; iw 07:20 Follow up: Response: No adverse reaction jl7 07:11 Drug: Rocuronium 75 mg Route: IVP; Site: left antecubital; iw 07:45 Follow up: Response: No adverse reaction jl7 07:24 Drug: Keppra (levETIRAcetam) 2000 mg Route: IV; Rate: bolus; Site: left antecubital; iw 08:00 Follow up: Response: No adverse reaction; IV Status: Completed infusion jl7 07:39 Drug: Propofol 5 mcg/kg/min Route: IV; Rate: calculated rate; Site: left antecubital; iw 07:50 Follow up: Rate change 20 mcg/kg/min iw 07:55 Follow up: Response: RASS: Restless (+1); Rate change 25 mcg/kg/min jl7 08:00 Follow up: Response: RASS: Light sedation (-2) jl7 08:30 Follow up: Response: RASS: Restless (+1); Rate change 30 mcg/kg/min jl7 08:40 Follow up: Response: RASS: Light sedation (-2) jl7 09:30 Follow up: Response: RASS: Restless (+1); Rate change 35 mcg/kg/min jl7 09:30 Follow up: Response: RASS: Restless (+1) jl7 10:30 Follow up: Response: RASS: Restless (+1); Rate change 40 mcg/kg/min jl7 11:05 Follow up: Response: RASS: Light sedation (-2) jl7 07:50 Drug: Lactated Ringers Solution 1000 ml Route: IV; Rate: bolus; Site: left hand; iw 09:00 Follow up: Response: No adverse reaction; IV Status: Completed infusion; IV Intake: jl7 1000ml 09:38 Drug: fentaNYL (PF) 50 mcg Route: IVP; Site: left hand; 5 10:00 Follow up: Response: No adverse reaction jl7 10:28 Drug: Potassium Chloride 40 mEq Route: IV; Rate: calculated rate; Site: left antecubital; 12:30 Follow up: IV Status: Infusion continued upon transfer iw 10:50 Not Given (Physician Discretion): Potassium Chloride Liquid 40 mEq PO once jl7 10:50 Drug: Calcium Gluconate 1 grams Route: IVPB; Infused Over: 60 mins; Site: left hand; jl7 12:01 Follow up: Response: No adverse reaction; IV Status: Completed infusion mb9 10:55 Not Given (Physician Discretion): Insulin Drip - (Insulin Regular Human 100 units, NS ph 0.9% 100 ml) IV at calculated rate continuous; Standard concentration 1unit/ml; Dose for DKA is 0.1 units/kg/hr 11:55 Drug: fentaNYL (PF) 50 mcg Route: IVP; Site: left hand; mb9 12:00 Follow up: Response: No adverse reaction mb9 11:58 Drug: Zofran (Ondansetron) 4 mg Route: IVP; Site: left hand; mb9 12:01 Follow up: Response: No adverse reaction mb9 Disposition Summary: 03/20/22 09:50 Transfer Ordered Transfer Location: [facility] rt Reason: Higher level of care rt Condition: Critical rt Problem: an acute exacerbation rt Symptoms: have improved rt Accepting Physician: Dr. Gee(03/20/22 12:35) mb9 Diagnosis - Epilepsy, unspecified, not intractable, with status epilepticus rt - Hypokalemia rt - Acute respiratory failure rt Forms: - Medication Reconciliation Form rt - SBAR form rt Signatures: Dispatcher [employer] Makenzie Childress RN RN iw Hall, Patricia RN RN Shannen Baig RN RN jl7 Lary Minor RN RN jh5 Danita Singh RN RN mb9 Eirc Reyes MD MD rt Corrections: (The following items were deleted from the chart) 11:42 09:50 Dr. Gee rt mb9 12:35 11:42 Dr. Gee mb9 mb9
[2022-03-20 09:55] LABS: Barbiturates NEGATIVE (NEGATIVE); Benzodiazepines NEGATIVE (NEGATIVE); Cocaine NEGATIVE (NEGATIVE); METHAMPHETAM NEGATIVE (NEGATIVE); Methadone NEGATIVE (NEGATIVE); Opiates NEGATIVE (NEGATIVE); Phencyclidine NEGATIVE (NEGATIVE); THC Cannibis POSITIVE (NEGATIVE)
[2022-03-20 10:28] LABS: Arterial Blood Carboxyhemoglob 0.6 % (0-1.5); Blood Gas Oxyhemoglobin 96.6 % (94-97); Blood O2 Saturation 98.6 % (92-98.5)
[2022-03-20 10:30] LABS: Potassium 3.7 mmol/L (3.5-5.1)
[2022-03-20] MEDS ORDERED: CALCIUM GLUCONATE 1 GM IVPB 1 GM/50 ML BAG IV ONE (10:36)
[2022-03-20] MEDS ORDERED: ONDANSETRON 4 MG/2 ML VIAL ONE (11:59)
[2022-03-20 12:44] VITALS: TEMP 97.7
[2022-03-20 13:12] VITALS: BP 111/96; O2SAT 96
== END 2022-03-20 12:35 | disposition short-term general hospital (02) ==
LOC: ER 07:04
DX: J96.00 Acute respiratory failure, unspecified whether with hypoxia or hypercapnia (principal); G40.901 Epilepsy, unspecified, not intractable, with status epilepticus; E87.6 Hypokalemia; Z20.822 Contact with and (suspected) exposure to COVID-19; Z88.0 Allergy status to penicillin
CPT/HCPCS: 85025; 81001; 80048; 36415; 82010; 83735; 84703; 82947 ×2; 83605; 80053; 80307; 70450; 71045; 94002; 82805 ×2; 87811; J1815; J2704 ×2; J3480 ×2; J3010 ×2; J1953; J0610; J7120 ×2; J2405; G0480 ×3